=== PATIENT | female | born 1955 | race Caucasian/White ===

== ENCOUNTER 2018-03-20 13:02 | Emergency (ER) | payer OTHER ==
--- NOTE | 2018-03-20 13:23 | ERPHSYRPT ---
- History of Present Illness Time Seen by Provider: 03/20/18 13:18 Historian: patient, family Exam Limitations: no limitations Patient Subjective Stated Complaint: Pt states "My grandson has seizures and he had one in the car and I leaned over the seat in the car to get him and I think I cracked a rib." Triage Nursing Assessment: Pt alert and oriented X 3, skin pwd. PT ambulates with an upright steady gait, able to speak in clear full sentences. Pt has tenderness noted to rib on left lateral and anterior side. Physician History: The patient is a 62-year-old female with family complaining that she hurt her left lateral ribs one week ago when she turned around from her front seat of the car to attend to one of her relatives. The top of the seat pushed on her rib causing it to hurt. She is concerned that it may be broken. It hurts some when she takes a deep breath. She denies shortness of breath. Her past medical history is significant for hypertension and coronary artery disease. Timing/Duration: week(s) (1) Activities at Onset: none Quality: sharpness Location: other (left rib pain) Chest Pain Radiation: no radiation Severity of Pain-Max: moderate Severity of Pain-Current: moderate Modifying Factors: Improves With: movement Associated Symptoms: hurts to breathe Prior Chest Pain/Cardiac Workup: no prior chest pain Nitro Today/Relief: no nitro taken today Aspirin Treatment Today: no aspirin today Allergies/Adverse Reactions: oseltamivir phosphate [From Tamiflu] Adverse Reaction (Verified 08/30/15 11:13) Home Medications: Aspir 81 81 mg PO BID 02/15/12 [History] Lisinopril 5 mg PO DAILY 02/15/12 [History] Nitro-Dur 0.2 mg/Hr 1 patch TOP DAILY 02/15/12 [History] Toprol Xl 50 MG 50 mg PO DAILY 02/15/12 [History] Hx Tetanus, Diphtheria Vaccination/Date Given: Yes Hx Influenza Vaccination/Date Given: No Hx Pneumococcal Vaccination/Date Given: No Immunizations Up to Date: Yes - Review of Systems Constitutional: No Fever, No Chills Eyes: No Symptoms Ears, Nose, & Throat: No Symptoms Respiratory: No Cough, No Dyspnea Cardiac: Chest Pain Abdominal/Gastrointestinal: No Abdominal Pain, No Nausea, No Vomiting, No Diarrhea Genitourinary Symptoms: No Dysuria Musculoskeletal: Injury (rib pain) Skin: No Rash Neurological: No Dizziness, No Focal Weakness, No Sensory Changes Psychological: No Symptoms Endocrine: No Symptoms Hematologic/Lymphatic: No Symptoms Immunological/Allergic: No Symptoms All Other Systems: Reviewed and Negative - Past Medical History Pertinent Past Medical History: Yes Neurological History: No Pertinent History ENT History: No Pertinent History Cardiac History: Coronary Artery Disease, High Cholesterol, Hypertension, Myocardial Infarction ([place]) Respiratory History: No Pertinent History Endocrine Medical History: No Pertinent History Musculoskeletal History: No Pertinent History GI Medical History: No Pertinent History History: Other Psycho-Social History: Anxiety Female Reproductive Disorders: No Pertinent History Other Medical History: kidney stones - Past Surgical History Past Surgical History: Yes Neuro Surgical History: No Pertinent History Cardiac: Cardiac Catheterization, Cardiac Stent Respiratory: No Pertinent History Gastrointestinal: No Pertinent History Genitourinary: No Pertinent History Musculoskeletal: Orthopedic Surgery Female Surgical History: Hysterectomy Other Surgical History: in 2001 and 2004 heart cath x2, heart stents x3. - Social History Smoking Status: Former smoker How long have you smoked: 20 Exposure to second hand smoke: No Drug Use: none Patient Lives Alone: No - Female History Hx Last Menstrual Period: no more Hx Now: No - Nursing Vital Signs Nursing Vital Signs: Initial Vital Signs Temperature 98.8 F 03/20/18 13:07 Pulse Rate 82 03/20/18 13:07 Respiratory Rate 18 03/20/18 13:07 Blood Pressure 130/94 03/20/18 13:07 O2 Sat by Pulse Oximetry 99 03/20/18 13:07 Pain Scale Pain Intensity 4 - Physical Exam General Appearance: no apparent distress, alert Eye Exam: PERRL/EOMI, eyes nml inspection Ears, Nose, Throat Exam: normal ENT inspection, moist mucous membranes Neck Exam: normal inspection, non-tender, supple, full range of motion Respiratory Exam: normal breath sounds, chest tenderness (left lateral rib tenderness), lungs clear, No respiratory distress Cardiovascular Exam: regular rate/rhythm, normal heart sounds Gastrointestinal/Abdomen Exam: soft, No tenderness, No mass Pelvic Exam: not done Rectal Exam: not done Back Exam: normal inspection, No CVA tenderness, No vertebral tenderness Extremity Exam: normal inspection, normal range of motion Neurologic Exam: alert, oriented x 3, cooperative, normal mood/affect, sensation nml, No motor deficits Skin Exam: normal color, warm, dry SpO2 Interpretation: normal SpO2: 99 Oxygen Delivery: Room Air - Radiology Exams Chest X-ray Interpretation: Interpreted by me, Negative, No Fracture, No Pneumothorax Left Ribs X-ray Interpretation: Interpreted by me, Negative, No Fracture, No Pneumothorax Ordered Tests: Active Orders 24 hr Category Date Time Status CHEST 2 VIEWS (PA AND LAT) Stat Exams 03/20/18 13:23 Taken RIBS UNILATERAL Stat Exams 03/20/18 13:23 Taken - Progress Progress: unchanged Air Movement: good Progress Note: 03/20/18 13:20 Pt declines toadol IM. Blood Culture(s) Obtained: No Antibiotics given: No Counseled pt/family regarding: rad results - Departure Time of Disposition: 14:34 Departure Disposition: Home Clinical Impression: Contusion of rib on left side Condition: Stable Critical Care Time: No Referrals: CONCHITA STAFFORD MD [Primary Care Provider] - Additional Instructions: You have a contusion to your left ribs. You declined any pain medicines in the ER. Take Tylenol and ibuprofen as needed. Follow-up with your primary medical doctor as needed.
[2018-03-20 14:05] VITALS: BP 127/95; PULSE 60
[2018-03-20 14:47] VITALS: O2SAT 95
--- NOTE | 2018-03-20 15:53 | XRAY ---
Indication: Left-sided rib pain following injury one week. Comparison: May 01, 2012. PA/lateral chest again hyperinflated with scattered biapical pleural-parenchymal fibrosis/scarring and calcified granulomas. No focal infiltrate, consolidation, or large effusion. Heart is not enlarged. Bony thorax intact again with minimal degenerative changes. Impression: Stable nonacute hyperinflated chest with chronic features.
--- NOTE | 2018-03-20 15:55 | XRAY ---
Indication: Pain following injury one week. Comparison: None 2 views of the left ribs demonstrates minimal double curvature scoliosis, scattered right lung calcified granulomas, and scattered vascular calcifications including coronary arteries. No other bony, articular, or soft tissue abnormalities.
== END 2018-03-20 14:47 | disposition home or self-care (01) ==
LOC: ED 13:02
DX: S20.212A Contusion of left front wall of thorax, initial encounter (principal); X50.0XXA Overexertion from strenuous movement or load, initial encounter; Z79.899 Other long term (current) drug therapy
CPT/HCPCS: 71046; 71100; 99283

== ENCOUNTER 2018-08-25 20:12 | Emergency (ER) | payer MEDICARE, OTHER ==
--- NOTE | 2018-08-25 20:46 | ERPHSYRPT ---
- History of Present Illness Time Seen by Provider: 08/25/18 20:46 Source: patient, family Exam Limitations: no limitations Physician History: 62 y/o white female with h/o bilat ureterolithiasis in past presents with similar left flank pain. came on suddenly and radiates into left groin. no gross hematuria. pt is nauseated but no vomiting. and no abd pain. Timing/Duration: today Activites at Onset: none Quality: pressure, sharpness, stabbing Onset Location: left flank Pain Radiation: groin (left groin) Severity of Pain-Max: moderate Severity of Pain-Current: moderate Sexual intercourse history: non-contributory Modifying Factors: Improves With: nothing Associated Symptoms: denies symptoms Allergies/Adverse Reactions: oseltamivir phosphate [From Tamiflu] Adverse Reaction (Verified 08/30/15 11:13) Home Medications: Aspir 81 81 mg PO BID 02/15/12 [History] Lisinopril 2.5 mg PO DAILY 02/15/12 [History] Nitro-Dur 0.2 mg/Hr 1 patch TOP DAILY 02/15/12 [History] Toprol Xl 50 MG 50 mg PO DAILY 02/15/12 [History] Clonazepam 0.5 mg [Klonopin 0.5 MG] 0.5 mg PO DAILY 08/25/18 [History] raNITIdine HCl [Ranitidine HCl] 150 mg PO BID 08/25/18 [History] Hx Tetanus, Diphtheria Vaccination/Date Given: Yes Hx Influenza Vaccination/Date Given: No Hx Pneumococcal Vaccination/Date Given: No - Review of Systems Constitutional: No Symptoms Eyes: No Symptoms Ears, Nose, & Throat: No Symptoms Respiratory: No Symptoms Cardiac: No Symptoms Abdominal/Gastrointestinal: No Symptoms Genitourinary Symptoms: Flank Pain (left) Musculoskeletal: No Symptoms Skin: No Symptoms Neurological: No Symptoms Psychological: No Symptoms Endocrine: No Symptoms Hematologic/Lymphatic: No Symptoms Immunological/Allergic: No Symptoms All Other Systems: Reviewed and Negative - Past Medical History Pertinent Past Medical History: Yes Neurological History: No Pertinent History ENT History: No Pertinent History Cardiac History: Coronary Artery Disease, High Cholesterol, Hypertension, Myocardial Infarction ([place]) Respiratory History: No Pertinent History Endocrine Medical History: No Pertinent History Musculoskeletal History: No Pertinent History GI Medical History: No Pertinent History History: Other Psycho-Social History: Anxiety Female Reproductive Disorders: No Pertinent History Other Medical History: kidney stones - Past Surgical History Past Surgical History: Yes Neuro Surgical History: No Pertinent History Cardiac: Cardiac Catheterization, Cardiac Stent Respiratory: No Pertinent History Gastrointestinal: No Pertinent History Genitourinary: No Pertinent History Musculoskeletal: Orthopedic Surgery Female Surgical History: Hysterectomy Other Surgical History: in 2001 and 2004 heart cath x2, heart stents x3. - Social History Smoking Status: Former smoker How long have you smoked: 20 Exposure to second hand smoke: No Drug Use: none Patient Lives Alone: No - Nursing Vital Signs Nursing Vital Signs: Initial Vital Signs Temperature 97.2 F 08/25/18 20:13 Pulse Rate 60 08/25/18 20:13 Respiratory Rate 18 08/25/18 20:13 Blood Pressure 175/102 08/25/18 20:13 O2 Sat by Pulse Oximetry 96 08/25/18 20:13 Pain Scale Pain Intensity 8 - Physical Exam General Appearance: mild distress, alert, anxiety Eye Exam: PERRL/EOMI Ears, Nose, Throat Exam: normal ENT inspection Neck Exam: normal inspection, non-tender, supple, full range of motion Respiratory Exam: normal breath sounds, lungs clear, airway intact, No chest tenderness, No respiratory distress Cardiovascular Exam: regular rate/rhythm, normal heart sounds, normal peripheral pulses Gastrointestinal/Abdomen Exam: soft, normal bowel sounds, No tenderness, No guarding, No rebound Pelvic Exam: not done Rectal Exam: not done Back Exam: CVA tenderness (left) Extremity Exam: normal inspection, normal range of motion, pelvis stable Neurologic Exam: alert, oriented x 3, cooperative, 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 tested Skin Exam: normal color, warm, dry Lymphatic Exam: No adenopathy SpO2 Interpretation: normal O2 Delivery: Room Air - Course Nursing assessment & vital signs reviewed: Yes EKG Interpreted by Me: RATE (56), Sinus Rhythm, NORMAL AXIS, NORMAL INTERVALS, NORMAL QRS, NORMAL ST-T, Other (no comparison ekg.) Ordered Tests: Active Orders 24 hr Category Date Time Status IV Insertion STAT Care 08/25/18 20:56 Active ABDOMEN AND PELVIS W/0 CONTRAS [CT] Stat Exams 08/25/18 20:57 Taken AMYLASE Stat Lab 08/25/18 20:56 Completed CBC W DIFF Stat Lab 08/25/18 20:56 Completed CMP Stat Lab 08/25/18 20:56 Completed CULTURE,URINE Stat Lab 08/25/18 21:00 Received LIPASE Stat Lab 08/25/18 20:56 Completed Lactic Acid Stat Lab 08/25/18 21:05 Completed UA W/RFX UR CULTURE Stat Lab 08/25/18 21:00 Completed Medication Summary Discontinued Medications Generic Name Dose Route Start Last Admin Trade Name Freq PRN Reason Stop Dose Admin Hydromorphone HCl 1 mg 08/25/18 20:56 08/25/18 21:10 Hydromorphone 1 Mg/Ml Ampule IV 08/25/18 20:57 1 mg STAT ONE Administration Hydromorphone HCl Confirm 08/25/18 21:06 Hydromorphone 1 Mg/Ml Ampule Administered 08/25/18 21:07 Dose 1 mg .ROUTE .STK-MED ONE Sodium Chloride 1,000 mls @ 999 mls/hr 08/25/18 20:56 08/25/18 21:11 Sodium Chloride 0.9% 1000 Ml IV 08/25/18 21:56 999 mls/hr .Q1H1M STA Administration Sodium Chloride Confirm 08/25/18 21:07 Sodium Chloride 0.9% 1000 Ml Administered 08/25/18 21:08 Dose 1,000 mls @ ud .ROUTE .STK-MED ONE Ondansetron HCl 4 mg 08/25/18 20:56 08/25/18 21:11 Zofran 4 Mg/2 Ml Vial IV 08/25/18 20:57 4 mg STAT ONE Administration Ondansetron HCl Confirm 08/25/18 21:06 Zofran 4 Mg/2 Ml Vial Administered 08/25/18 21:07 Dose 4 mg .ROUTE .STK-MED ONE Lab/Rad Data: Laboratory Result Diagrams 08/25/18 20:56 08/25/18 20:56 Laboratory Results 08/25/18 08/25/18 08/25/18 Range/Units 21:05 21:00 20:56 WBC (4.0-10.5) K/mm3 RBC (4.1-5.4) M/mm3 Hgb (12.0-16.0) gm/dl Hct (35-47) % MCV (78-100) fl MCH (26-32) pg MCHC (32-36) g/dl RDW (11.5-14.0) % Plt Count (150-450) K/mm3 MPV (6-9.5) fl Gran % (36.0-66.0) % Eos # (Auto) (0-0.5) Absolute Lymphs (auto) (1.0-4.6) Absolute Monos (auto) (0.0-1.3) Lymphocytes % (24.0-44.0) % Monocytes % (0.0-12.0) % Eosinophils % (0.00-5.0) % Basophils % (0.0-0.4) % Absolute Granulocytes (1.4-6.9) Basophils # (0-0.4) Sodium 142 (137-145) mmol/L Potassium 4.7 (3.5-5.1) mmol/L Chloride 106 (98-107) mmol/L Carbon Dioxide 25 (22-30) mmol/L Anion Gap 15.2 H (5-15) MEQ/L BUN 17 (7-17) mg/dL Creatinine 1.71 H (0.52-1.04) mg/dL Estimated GFR 32.3 ML/MIN Glucose 145 H (74-106) mg/dL Lactic Acid 1.5 (0.4-2.0) Calcium 10.1 (8.4-10.2) mg/dL Total Bilirubin 0.30 (0.2-1.3) mg/dL AST 24 (14-36) U/L ALT 17 (0-35) U/L Alkaline Phosphatase 81 (38-126) U/L Serum Total Protein 7.0 (6.3-8.2) g/dL Albumin 4.2 (3.5-5.0) g/dL Amylase 102 (30-110) U/L Lipase 92 (23-300) U/L Urine Color YELLOW (YELLOW) Urine Appearance CLEAR (CLEAR) Urine pH 5.0 (5-6) Ur Specific [place] 1.017 (1.005-1.025) Urine Protein NEGATIVE (Negative) Urine Ketones NEGATIVE (NEGATIVE) Urine Blood LARGE (0-5) Bala/ul Urine Nitrite NEGATIVE (NEGATIVE) Urine Bilirubin NEGATIVE (NEGATIVE) Urine Urobilinogen NEGATIVE (0-1) mg/dL Ur Leukocyte Esterase NEGATIVE (NEGATIVE) Urine WBC (Auto) 6-10 (0-5) /HPF Urine RBC (Auto) >101 (0-2) /HPF U Epithel Cells (Auto) NONE (FEW) /HPF Urine Bacteria (Auto) NONE (NEGATIVE) /HPF Urine Mucus (Auto) SLIGHT (NEGATIVE) /HPF Urine Culture Reflexed YES (NO) Urine Glucose 50 (NEGATIVE) mg/dL 08/25/18 Range/Units 20:56 WBC 7.1 (4.0-10.5) K/mm3 RBC 4.60 (4.1-5.4) M/mm3 Hgb 13.5 (12.0-16.0) gm/dl Hct 41.3 (35-47) % MCV 89.8 (78-100) fl MCH 29.3 (26-32) pg MCHC 32.7 (32-36) g/dl RDW 13.8 (11.5-14.0) % Plt Count 191 (150-450) K/mm3 MPV 10.2 H (6-9.5) fl Gran % 60.1 (36.0-66.0) % Eos # (Auto) 0.28 (0-0.5) Absolute Lymphs (auto) 1.95 (1.0-4.6) Absolute Monos (auto) 0.57 (0.0-1.3) Lymphocytes % 27.5 (24.0-44.0) % Monocytes % 8.1 (0.0-12.0) % Eosinophils % 4.0 (0.00-5.0) % Basophils % 0.3 (0.0-0.4) % Absolute Granulocytes 4.26 (1.4-6.9) Basophils # 0.02 (0-0.4) Sodium (137-145) mmol/L Potassium (3.5-5.1) mmol/L Chloride (98-107) mmol/L Carbon Dioxide (22-30) mmol/L Anion Gap (5-15) MEQ/L BUN (7-17) mg/dL Creatinine (0.52-1.04) mg/dL Estimated GFR ML/MIN Glucose (74-106) mg/dL Lactic Acid (0.4-2.0) Calcium (8.4-10.2) mg/dL Total Bilirubin (0.2-1.3) mg/dL AST (14-36) U/L ALT (0-35) U/L Alkaline Phosphatase (38-126) U/L Serum Total Protein (6.3-8.2) g/dL Albumin (3.5-5.0) g/dL Amylase (30-110) U/L Lipase (23-300) U/L Urine Color (YELLOW) Urine Appearance (CLEAR) Urine pH (5-6) Ur Specific [place] (1.005-1.025) Urine Protein (Negative) Urine Ketones (NEGATIVE) Urine Blood (0-5) Bala/ul Urine Nitrite (NEGATIVE) Urine Bilirubin (NEGATIVE) Urine Urobilinogen (0-1) mg/dL Ur Leukocyte Esterase (NEGATIVE) Urine WBC (Auto) (0-5) /HPF Urine RBC (Auto) (0-2) /HPF U Epithel Cells (Auto) (FEW) /HPF Urine Bacteria (Auto) (NEGATIVE) /HPF Urine Mucus (Auto) (NEGATIVE) /HPF Urine Culture Reflexed (NO) Urine Glucose (NEGATIVE) mg/dL - Progress Progress: improved, re-examined Air Movement: good Progress Note: 08/25/18 23:23 ct abd/pelvis-3mm distal left ureterolithiasis with mild hydroureteronephrosis Blood Culture(s) Obtained: No Antibiotics given: No Counseled pt/family regarding: lab results, diagnosis, need for follow-up, rad results - Departure Departure Disposition: Home Clinical Impression: Ureterolithiasis Condition: Stable Critical Care Time: No Referrals: CONCHITA STAFFORD MD [Primary Care Provider] - Additional Instructions: drink plenty of fluids. follow up with urologist/primary doctor for further management. add ibuprofen for pain. Prescriptions: Hydrocodone/APAP 5/325 [[place] 5/325 mg] 1 each PO Q8H PRN PRN #10 tablet MDD 3 PRN Reason: Pain
[2018-08-25] MEDS ORDERED: Hydromorphone 1 mg/ml Ampule IV ONE ×2 (20:56→23:28)
[2018-08-25] MEDS ORDERED: Sodium Chloride 0.9% 1000 ML 1,000 ML IV STA (20:56)
[2018-08-25] MEDS ORDERED: Zofran 4 MG/2 ML VIAL IV ONE ×2 (20:56→23:32)
[2018-08-25] MEDS ORDERED: Zofran 4 MG/2 ML VIAL ONE ×2 (21:06→23:35)
[2018-08-25] MEDS ORDERED: Hydromorphone 1 mg/ml Ampule ONE (21:06)
[2018-08-25] MEDS ORDERED: Sodium Chloride 0.9% 1000 ML 1,000 ML ONE (21:07)
[2018-08-25 21:14] LABS: BASOPHIL % 0.3 % (0.0-0.4); Basophil (Absolute #) 0.02 (0-0.4); Eosinophil (Absolute #) 0.28 (0-0.5); Granulocyte Absolute (ANC) 4.26 (1.4-6.9); Granulocytes % 60.1 % (36.0-66.0); Hematocrit 41.3 % (35-47); Hemoglobin 13.5 gm/dl (12.0-16.0); Lymphocyte (Absolute #) 1.95 (1.0-4.6); Lymphocytes % 27.5 % (24.0-44.0); Mean Cell Volume 89.8 fl (78-100); Mean Corpuscular Hemoglobin 29.3 pg (26-32); Mean Corpuscular Hgb Concent. 32.7 g/dl (32-36); Mean Platelet Volume 10.2 fl (6-9.5); Monocyte (Absolute #) 0.57 (0.0-1.3); Monocytes % 8.1 % (0.0-12.0); Platelet Count 191 K/mm3 (150-450); Red Cell Distribution Width 13.8 % (11.5-14.0); White Blood Count 7.1 K/mm3 (4.0-10.5)
[2018-08-25 21:23] LABS: Appearance CLEAR (CLEAR); Bilirubin NEGATIVE (NEGATIVE); Blood LARGE Ery/ul (0-5); Glucose 50 mg/dL (NEGATIVE); Ketones NEGATIVE (NEGATIVE); Leukocyte Esterase NEGATIVE (NEGATIVE); Mucus SLIGHT /HPF (NEGATIVE); Nitrite NEGATIVE (NEGATIVE); Protein,Urine Dip NEGATIVE (Negative); Specific Gravity 1.017 (1.005-1.025); Urobilinogen NEGATIVE mg/dL (0-1)
[2018-08-25 21:24] LABS: RBC >101 /HPF (0-2)
[2018-08-25 21:26] LABS: ALBUMIN 4.2 g/dL (3.5-5.0); ANION GAP 15.2 MEQ/L (5-15); BILIRUBIN,TOTAL 0.3 mg/dL (0.2-1.3); Calcium 10.1 mg/dL (8.4-10.2); Creatinine 1 1.71 mg/dL (0.52-1.04); Potassium 4.7 mmol/L (3.5-5.1)
[2018-08-25] MEDS ORDERED: TORAdol 30 mg Injection IV ONE (23:28)
[2018-08-25] MEDS ORDERED: TORAdol 30 mg Injection ONE (23:35)
[2018-08-26 00:01] VITALS: BP 125/61; PULSE 60; O2SAT 96
--- NOTE | 2018-08-26 09:04 | XRAY ---
Indication: Left flank pain. Renal failure. Multiple contiguous axial images obtained through the abdomen and pelvis without contrast as ordered. Comparison: August 30, 2015. Lung bases now demonstrates mild dependent atelectasis. Stable pulmonary emphysema, scattered fibrosis/scarring, and right base calcified granuloma. No infiltrate or effusion. Heart is not enlarged. New small hiatal hernia. Stomach is distended with food/fluid. Noncontrasted stomach and bowel loops appears nonobstructed. Previous reported appendectomy and hysterectom. No free fluid/air. New 2-3 mm distal left ureter calculus approximately 3-4 cm proximal to the UVJ. Left ureter is slightly prominent and there is mild hydronephrosis consistent with partial obstructive uropathy. Remaining kidneys demonstrate stable bilateral cysts, bilateral punctate calcifications, and right renal scarring. Remaining liver, gallbladder, pancreas, spleen, adrenal glands, kidneys, ureters, and bladder appear unremarkable for noncontrast exam. Again heavy scattered vascular calcifications. No AAA. Osseous structures intact with minimal degenerative changes throughout the spine. Stable small fatty umbilical hernia. Impression: 1. New 2-3 mm distal left ureteral calculus producing partial obstruction. 2. Stable bilateral renal cysts with punctate calcifications and right renal scarring. 3. Stable fatty umbilical hernia, pulmonary emphysema, and evidence for old granulomatous disease. New small hiatal hernia. 4. Remaining CT abdomen/pelvis without contrast exam is negative Comment: Preliminary interpretation was made by [facility]. No critical discrepancy. CT DI 16.29
== END 2018-08-26 00:02 | disposition home or self-care (01) ==
LOC: ED 20:12
DX: N20.1 Calculus of ureter (principal); R10.30 Lower abdominal pain, unspecified; Z79.899 Other long term (current) drug therapy
CPT/HCPCS: 36000; 36415; 74176; 80053; 81001; 82150; 83605; 83690; 85025; 87086; 96360; 96374; 96375; 96376; 99284; J1170; J1885; J2405

== ENCOUNTER 2018-10-24 21:19 | Emergency (ER) | payer MEDICARE ==
--- NOTE | 2018-10-24 21:40 | ERPHSYRPT ---
- History of Present Illness Time Seen by Provider: 10/24/18 21:35 Source: patient Exam Limitations: clinical condition Physician History: PATIENT FELL AND SUSTAINED INJURY TO HER LEFT FOOT AND ANKLE 1 WEEK AGO. HAS PERSISTENT PAIN WITH SWELLING. Method of Injury: direct blow, fell Occurred: last week Severity of Pain-Max: moderate Severity of Pain-Current: moderate Lower Extremities Pain: foot: left, ankle: left Modifying Factors: Improves With: movement Associated Symptoms: other (SEVERE PAIN UPON WEIGHT BEARING) Allergies/Adverse Reactions: oseltamivir phosphate [From Tamiflu] Adverse Reaction (Verified 10/24/18 21:36) Home Medications: Aspir 81 81 mg PO BID 02/15/12 [History] Lisinopril 2.5 mg PO DAILY 02/15/12 [History] Nitro-Dur 0.2 mg/Hr 1 patch TOP DAILY 02/15/12 [History] Toprol Xl 50 MG 50 mg PO DAILY 02/15/12 [History] Clonazepam 0.5 mg [Klonopin 0.5 MG] 0.5 mg PO DAILY 08/25/18 [History] raNITIdine HCl [Ranitidine HCl] 150 mg PO BID 08/25/18 [History] Hx Tetanus, Diphtheria Vaccination/Date Given: Yes Hx Influenza Vaccination/Date Given: No Hx Pneumococcal Vaccination/Date Given: No - Review of Systems Constitutional: No Symptoms Musculoskeletal: Injury, Joint Pain, Joint Swelling Neurological: No Symptoms, Dizziness, Focal Weakness - Past Medical History Pertinent Past Medical History: Yes Neurological History: No Pertinent History ENT History: No Pertinent History Cardiac History: Coronary Artery Disease, High Cholesterol, Hypertension, Myocardial Infarction ([place]) Respiratory History: No Pertinent History Endocrine Medical History: No Pertinent History Musculoskeletal History: No Pertinent History GI Medical History: No Pertinent History History: Other Psycho-Social History: Anxiety Female Reproductive Disorders: No Pertinent History Other Medical History: kidney stones - Past Surgical History Past Surgical History: Yes Neuro Surgical History: No Pertinent History Cardiac: Cardiac Catheterization, Cardiac Stent Respiratory: No Pertinent History Gastrointestinal: No Pertinent History Genitourinary: No Pertinent History Musculoskeletal: Orthopedic Surgery Female Surgical History: Hysterectomy Other Surgical History: in 2001 and 2004 heart cath x2, heart stents x3. - Social History Smoking Status: Former smoker How long have you smoked: 20 Exposure to second hand smoke: No Drug Use: none Patient Lives Alone: No - Nursing Vital Signs Nursing Vital Signs: Initial Vital Signs Temperature 98.1 F 10/24/18 21:38 Pulse Rate 62 10/24/18 21:38 Respiratory Rate 18 10/24/18 21:38 Blood Pressure 174/98 10/24/18 21:38 O2 Sat by Pulse Oximetry 97 10/24/18 21:38 Pain Scale Pain Intensity 8 - Physical Exam General Appearance: mild distress Ankle Exam: left ankle: limited range of motion, pain, soft tissue tenderness, swelling (LATERAL MALLEOLUS, NO JOINT LAXITY UPON VARUS/VALGUS STRESS, NEGATIVE ANTERIOR DRAW SIGN) Foot Exam: left foot: pain (RESOLVING ECCHYMOSIS PROXIMAL TO MID 4TH TO 5TH METATARSAL ON LEFT, MARKED TENDERNESS PROXIMAL TO MID LEFT 4TH 5TH METATARSAL, LEFT PEDIS PULSE 2 +), soft tissue tenderness DTR - Lower Extremities Exam: knee (R): 2+, knee (L): 2+, ankle (R): 2+, ankle ( L): 2+ Neuro/Tendon Exam: normal sensation Mental Status Exam: alert, oriented x 3 SpO2 Interpretation: normal SpO2: 98 Procedures - Splinting Location of Splint: Left, Lower Leg Type of Splint: Orthoglass Short Leg Splint Splint Applied By: ED Physician Pre-Proc Neuro Vasc Exam: normal Post-Proc Neuro Vasc Exam: neurovascular intact, unchanged from pre-exam Ordered Tests: Active Orders 24 hr Category Date Time Status Splint STAT Care 10/24/18 22:31 Ordered ANKLE (3 VIEWS) Stat Exams 10/24/18 21:37 Ordered FOOT (MINIMUM 3 VIEWS) Stat Exams 10/24/18 21:39 Ordered Medication Summary Discontinued Medications Generic Name Dose Route Start Last Admin Trade Name Marcella PRN Reason Stop Dose Admin Hydrocodone Bitart/Acetaminophen 1 tab 10/24/18 22:31 10/24/18 22:39 [place] 10/325 Mg Tablet PO 10/24/18 22:32 1 tab STAT ONE Administration Hydrocodone Bitart/Acetaminophen 2 tab 10/24/18 22:31 10/24/18 22:40 [place] 10/325 Mg Tablet PO 10/24/18 22:32 2 tab SENT HOME W/ PATIENT ONE Administration Hydrocodone Bitart/Acetaminophen Confirm 10/24/18 22:37 [place] 10/325 Mg Tablet Administered 10/24/18 22:38 Dose 3 tab .ROUTE .STK-MED ONE - Progress Progress: pain not gone completely Progress Note: 10/24/18 22:50 ADMINISTERED NORCO 10/325 ORALLY, NORCO 10/325 2 TAB TAKE HOME 10/24/18 22:51, FITTED FOR CRUTCHES Counseled pt/family regarding: diagnosis, need for follow-up, rad results - Departure Departure Disposition: Home Clinical Impression: DISPLACED LEFT 5TH METATARSAL FRACTURE Condition: Stable Critical Care Time: No Referrals: CONCHITA STAFFORD MD [Primary Care Provider] - Additional Instructions: AMBULATE USING CRUTCHES NONWEIGHT BEARING CRUTCHES. FOLLOWUP WITH [facility] TOMORROW AT 10AM WITH COPY OF XRAY DISC, [address], [phone] FOR EVALUATION. ELEVATE FOOT ABOVE WAIST WHILE SITTING OR SUPINE POSITION. NORCO 5/325 EVERY 6 HOURS FOR PAIN NEEDED. Prescriptions: Hydrocodone/APAP 5-325 Tab^^^ [[place] 5-325 Tablet^^^] 1 tab PO Q6HPRN PRN #15 tablet MDD 6 PRN Reason: Pain
[2018-10-24] MEDS ORDERED: Norco 10/325 MG Tablet PO ONE ×2 (22:31)
[2018-10-24] MEDS ORDERED: Norco 10/325 MG Tablet ONE (22:37)
[2018-10-24 22:47] VITALS: BP 158/98; PULSE 66
[2018-10-24 22:56] VITALS: O2SAT 98
--- NOTE | 2018-10-25 08:58 | XRAY ---
Indication: Pain and swelling following fall. Comparison: None 3 views of the left ankle demonstrates small plantar heel spur and a 5th metatarsal fracture reported separately. No other bony, articular, or soft tissue abnormalities.
--- NOTE | 2018-10-25 09:00 | XRAY ---
Indication: Pain and swelling following fall. Comparison: None 3 nonweightbearing views of the left foot demonstrates minimally displaced 5th metatarsal shaft oblique fracture with soft tissue swelling. Small plantar heel spur and navicular accessory ossicle. No other bony, articular, or soft tissue abnormalities.
== END 2018-10-24 23:48 | disposition home or self-care (01) ==
LOC: ED 21:19
DX: S92.352A Displaced fracture of fifth metatarsal bone, left foot, initial encounter for closed fracture (principal); Z79.899 Other long term (current) drug therapy; M25.572 Pain in left ankle and joints of left foot; M79.672 Pain in left foot; W19.XXXA Unspecified fall, initial encounter
CPT/HCPCS: 73610; 73630; 99284; A9270-GY

== ENCOUNTER 2019-04-06 00:49 | Observation (INO) | payer MEDICARE ==
[2019-04-06] MEDS ORDERED: SUBLIMAZE 100 MCG/2 ML IV ONE (00:59)
[2019-04-06] MEDS ORDERED: Zofran 4 MG/2 ML VIAL IV ONE (00:59)
[2019-04-06] MEDS ORDERED: PROTONIX 40 MG IV IV ONE ×2 (00:59→01:17)
[2019-04-06 01:15] LABS: Absolute Neutrophil Ct (ANC) 4.25 (1.4-6.9); BASOPHIL % 0.5 % (0.0-0.4); Basophil (Absolute #) 0.05 (0-0.4); Eosinophil % 6.1 % (0.00-5.0); Eosinophil (Absolute #) 0.56 (0-0.5); Hematocrit 42.3 % (35-47); Hemoglobin 13.7 gm/dl (12.0-16.0); Lymphocyte (Absolute #) 3.51 (1.0-4.6); Lymphocytes % 38.2 % (24.0-44.0); Mean Cell Volume 88.9 fl (78-100); Mean Corpuscular Hemoglobin 28.8 pg (26-32); Mean Corpuscular Hgb Concent. 32.4 g/dl (32-36); Mean Platelet Volume 9.8 fl (6-9.5); Monocyte (Absolute #) 0.83 (0.0-1.3); Neutrophil % 46.2 % (36.0-66.0); Platelet Count 224 K/mm3 (150-450); Red Blood Count 4.76 M/mm3 (4.1-5.4); Red Cell Distribution Width 14.2 % (11.5-14.0); White Blood Count 9.2 K/mm3 (4.0-10.5)
[2019-04-06] MEDS ORDERED: Zofran 4 MG/2 ML VIAL ONE ×2 (01:17→16:21)
[2019-04-06] MEDS ORDERED: SUBLIMAZE 100 MCG/2 ML ONE ×2 (01:18→14:05)
[2019-04-06 01:23] LABS: INR 0.9 (0.8-3.0); PROTIME 10.2 SECONDS (9.95-12.35)
[2019-04-06 01:26] LABS: PTT 29.2 SECONDS (25.3-37.0)
[2019-04-06] MEDS: Sodium Chloride 0.9% 1000 ML 1,000 ML IV SCH ×3 (01:26→22:12)
[2019-04-06 01:27] LABS: AMYLASE 102 U/L (30-110); LIPASE 272 U/L (23-300)
[2019-04-06 01:38] LABS: ALBUMIN 4.3 g/dL (3.5-5.0); ANION GAP 12.9 MEQ/L (5-15); BILIRUBIN,TOTAL 0.3 mg/dL (0.2-1.3); Calcium 9.6 mg/dL (8.4-10.2); Creatinine 1 1.51 mg/dL (0.52-1.04); Potassium 3.7 mmol/L (3.5-5.1); Total Protein 7.7 g/dL (6.3-8.2)
--- NOTE | 2019-04-06 02:13 | ERPHSYRPT ---
- History of Present Illness Time Seen by Provider: 04/06/19 00:55 Historian: patient Exam Limitations: no limitations Patient Subjective Stated Complaint: pt arrived stating that she is having chest pain and abdominal pain that wokeher up while asleep this morning. pt rates pain as 10/10 at this time Triage Nursing Assessment: pt states pain in abdomen and chest 10/10. states she has had several heart attacks in passed. Physician History: patient is a 63-year-old white female with a history of previous AK who was awaken from sleep with pain which started in the upper abdomen radiating to the chest and made it patient short of breath. She denies any nausea vomiting or diaphoresis she states definitively that the chest pain is not like any previous AK. She also is being treated for GERD with ranitidine substitute. She has a history of AK she has a positive family history her cholesterol has been elevated she was recently started on a medication for that hypertension stated diabetes negative she is a former smoker. Timing/Duration: sudden, other (onset just prior to arrival) Activities at Onset: sleep Quality: fullness, tightness Abdominal Pain Onset Location: RUQ, epigastric Pain Radiation: chest Severity of Pain-Max: moderate Severity of Pain-Current: moderate Modifying Factors: Improves With: nothing Associated Symptoms: chest pain, shortness of breath Previous symptoms: different symptoms (aand) Allergies/Adverse Reactions: oseltamivir phosphate [From Tamiflu] Adverse Reaction (Verified 04/06/19 01:07) Home Medications: Aspir 81 81 mg PO BID 02/15/12 [History] Lisinopril 2.5 mg PO DAILY 02/15/12 [History] Nitro-Dur 0.2 mg/Hr 1 patch TOP DAILY 02/15/12 [History] Toprol Xl 50 MG 50 mg PO DAILY 02/15/12 [History] Clonazepam 0.5 mg [Klonopin 0.5 MG] 0.5 mg PO DAILY 08/25/18 [History] Atorvastatin Calcium 10 mg PO DAILY 04/06/19 [History] Famotidine 20 mg PO DAILY 04/06/19 [History] Famotidine 20 mg PO DAILY 04/06/19 [History] Hx Tetanus, Diphtheria Vaccination/Date Given: Yes Hx Influenza Vaccination/Date Given: No Hx Pneumococcal Vaccination/Date Given: No - Review of Systems Constitutional: No Symptoms (n), No Fever, No Chills Eyes: No Symptoms Ears, Nose, & Throat: No Symptoms Respiratory: Dyspnea, No Cough Cardiac: Chest Pain, No Edema, No Syncope Abdominal/Gastrointestinal: Abdominal Pain, No Nausea, No Vomiting, No Diarrhea Genitourinary Symptoms: No Dysuria Musculoskeletal: No Back Pain, No Neck Pain Skin: No Rash Neurological: No Dizziness, No Focal Weakness, No Sensory Changes Psychological: No Symptoms Endocrine: No Symptoms All Other Systems: Reviewed and Negative - Past Medical History Pertinent Past Medical History: Yes Neurological History: No Pertinent History ENT History: No Pertinent History Cardiac History: Coronary Artery Disease, High Cholesterol, Hypertension, Myocardial Infarction (AK) Respiratory History: No Pertinent History Endocrine Medical History: No Pertinent History Musculoskeletal History: No Pertinent History GI Medical History: No Pertinent History History: Other Psycho-Social History: Anxiety Female Reproductive Disorders: No Pertinent History Other Medical History: kidney stones - Past Surgical History Past Surgical History: Yes Neuro Surgical History: No Pertinent History Cardiac: Cardiac Catheterization, Cardiac Stent Respiratory: No Pertinent History Gastrointestinal: No Pertinent History Genitourinary: No Pertinent History Musculoskeletal: Orthopedic Surgery Female Surgical History: Hysterectomy Other Surgical History: in 2001 and 2004 heart cath x2, heart stents x3. - Social History Smoking Status: Former smoker How long have you smoked: 20 Exposure to second hand smoke: No Drug Use: none Patient Lives Alone: No - Nursing Vital Signs Nursing Vital Signs: Initial Vital Signs Temperature 97.6 F 04/06/19 00:50 Pulse Rate 73 04/06/19 00:50 Respiratory Rate 20 04/06/19 00:50 Blood Pressure 163/93 04/06/19 00:50 O2 Sat by Pulse Oximetry 100 04/06/19 00:50 Pain Scale Pain Intensity 8 - Physical Exam General Appearance: mild distress, alert Eye Exam: PERRL/EOMI, eyes nml inspection Ears, Nose, Throat Exam: normal ENT inspection, pharynx normal, moist mucous membranes Neck Exam: normal inspection, non-tender, supple, full range of motion Respiratory Exam: normal breath sounds, lungs clear, No respiratory distress Cardiovascular Exam: regular rate/rhythm, normal heart sounds Gastrointestinal/Abdomen Exam: tenderness (tenderness in the right upper quadrant and epigastrium), No mass Pelvic Exam: not done Rectal Exam: not done Back Exam: normal inspection, normal range of motion, No CVA tenderness, No vertebral tenderness Extremity Exam: normal inspection, normal range of motion, pelvis stable Neurologic Exam: alert, oriented x 3, cooperative, normal mood/affect, nml cerebellar function, sensation nml, No motor deficits Skin Exam: normal color, warm, dry Lymphatic Exam: adenopathy SpO2 Interpretation: normal SpO2: 96 O2 Delivery: Room Air - Course Nursing assessment & vital signs reviewed: Yes EKG Interpreted by Me: RATE ([id number]), Sinus Rhythm, NORMAL AXIS, NORMAL INTERVALS, NORMAL QRS, Non-specific ST Changes Ordered Tests: Active Orders 24 hr Category Date Time Status Alteration Worker STAT Care 04/06/19 00:58 Active EKG-ER Only STAT Care 04/06/19 00:57 Active IV Insertion STAT Care 04/06/19 00:57 Active Pulse Oximetry (ED) STAT Care 04/06/19 00:57 Active CHEST 1 VIEW (PORTABLE) Stat Exams 04/06/19 00:57 Taken AMYLASE Stat Lab 04/06/19 01:16 Completed CBC W DIFF Stat Lab 04/06/19 01:16 Completed CK-Creatinine Phosphokinase Stat Lab 04/06/19 01:16 Completed CMP Stat Lab 04/06/19 01:16 Completed D-DIMER QUANTITATION Stat Lab 04/06/19 01:16 Completed LIPASE Stat Lab 04/06/19 01:16 Completed Lactic Acid Stat Lab 04/06/19 00:55 Completed NT PRO BNP Stat Lab 04/06/19 01:16 Completed PROTIME WITH INR Stat Lab 04/06/19 01:16 Completed PTT Stat Lab 04/06/19 01:16 Completed TROPONIN Q3H Lab 04/06/19 01:16 Completed TROPONIN Q3H Lab 04/06/19 04:00 Ordered TROPONIN Q3H Lab 04/06/19 07:00 Ordered TROPONIN Q3H Lab 04/06/19 10:00 Ordered TROPONIN Q3H Lab 04/06/19 13:00 Ordered Medication Summary Generic Name Dose Route Start Last Admin Trade Name Freq PRN Reason Stop Dose Admin Sodium Chloride 1,000 mls @ 100 mls/hr 04/06/19 01:00 04/06/19 01:26 Sodium Chloride 0.9% 1000 Ml IV 05/06/19 00:59 100 mls/hr .Q10H HUMZA Administration Discontinued Medications Generic Name Dose Route Start Last Admin Trade Name Freq PRN Reason Stop Dose Admin Fentanyl Citrate 50 mcg 04/06/19 00:59 04/06/19 01:25 Sublimaze 100 Mcg/2 Ml IV 04/06/19 01:00 50 mcg STAT ONE Administration Fentanyl Citrate Confirm 04/06/19 01:18 Sublimaze 100 Mcg/2 Ml Administered 04/06/19 01:19 Dose 100 mcg .ROUTE .STK-MED ONE Ondansetron HCl 4 mg 04/06/19 00:59 04/06/19 01:26 Zofran 4 Mg/2 Ml Vial IV 04/06/19 01:00 4 mg STAT ONE Administration Ondansetron HCl Confirm 04/06/19 01:17 Zofran 4 Mg/2 Ml Vial Administered 04/06/19 01:18 Dose 4 mg .ROUTE .STK-MED ONE Pantoprazole Sodium 40 mg 04/06/19 00:59 04/06/19 01:25 Protonix 40 Mg Iv IV 04/06/19 01:00 40 mg STAT ONE Administration Pantoprazole Sodium Confirm 04/06/19 01:17 Protonix 40 Mg Iv Administered 04/06/19 01:18 Dose 40 mg IV .STK-MED ONE Lab/Rad Data: Laboratory Result Diagrams 04/06/19 01:16 04/06/19 01:16 Laboratory Results 04/06/19 04/06/19 04/06/19 Range/Units 01:16 01:16 01:16 WBC (4.0-10.5) K/mm3 RBC (4.1-5.4) M/mm3 Hgb (12.0-16.0) gm/dl Hct (35-47) % MCV (78-100) fl MCH (26-32) pg MCHC (32-36) g/dl RDW (11.5-14.0) % Plt Count (150-450) K/mm3 MPV (6-9.5) fl Gran % (36.0-66.0) % Eos # (Auto) (0-0.5) Absolute Lymphs (auto) (1.0-4.6) Absolute Monos (auto) (0.0-1.3) Lymphocytes % (24.0-44.0) % Monocytes % (0.0-12.0) % Eosinophils % (0.00-5.0) % Basophils % (0.0-0.4) % Absolute Granulocytes (1.4-6.9) Basophils # (0-0.4) PT 10.2 (9.95-12.35) SECONDS INR 0.90 (0.8-3.0) APTT 29.2 (25.3-37.0) SECONDS D-Dimer 664 H* (215-500) ng/mL Sodium (137-145) mmol/L Potassium (3.5-5.1) mmol/L Chloride (98-107) mmol/L Carbon Dioxide (22-30) mmol/L Anion Gap (5-15) MEQ/L BUN (7-17) mg/dL Creatinine (0.52-1.04) mg/dL Estimated GFR ML/MIN Glucose (74-106) mg/dL Lactic Acid (0.4-2.0) Calcium (8.4-10.2) mg/dL Total Bilirubin (0.2-1.3) mg/dL AST (14-36) U/L ALT (0-35) U/L Alkaline Phosphatase (38-126) U/L Creatine Kinase (30-135) U/L Troponin I < 0.012 (0.000-0.034) ng/mL NT-Pro-B Natriuret Pep (0-900) pg/mL Serum Total Protein (6.3-8.2) g/dL Albumin (3.5-5.0) g/dL Amylase 102 (30-110) U/L Lipase 272 (23-300) U/L 04/06/19 04/06/19 04/06/19 Range/Units 01:16 01:16 00:55 WBC 9.2 (4.0-10.5) K/mm3 RBC 4.76 (4.1-5.4) M/mm3 Hgb 13.7 (12.0-16.0) gm/dl Hct 42.3 (35-47) % MCV 88.9 (78-100) fl MCH 28.8 (26-32) pg MCHC 32.4 (32-36) g/dl RDW 14.2 H (11.5-14.0) % Plt Count 224 (150-450) K/mm3 MPV 9.8 H (6-9.5) fl Gran % 46.2 (36.0-66.0) % Eos # (Auto) 0.56 H (0-0.5) Absolute Lymphs (auto) 3.51 (1.0-4.6) Absolute Monos (auto) 0.83 (0.0-1.3) Lymphocytes % 38.2 (24.0-44.0) % Monocytes % 9.0 (0.0-12.0) % Eosinophils % 6.1 H (0.00-5.0) % Basophils % 0.5 (0.0-0.4) % Absolute Granulocytes 4.25 (1.4-6.9) Basophils # 0.05 (0-0.4) PT (9.95-12.35) SECONDS INR (0.8-3.0) APTT (25.3-37.0) SECONDS D-Dimer (215-500) ng/mL Sodium 141 (137-145) mmol/L Potassium 3.7 (3.5-5.1) mmol/L Chloride 107 (98-107) mmol/L Carbon Dioxide 25 (22-30) mmol/L Anion Gap 12.9 (5-15) MEQ/L BUN 19 H (7-17) mg/dL Creatinine 1.51 H (0.52-1.04) mg/dL Estimated GFR 37.1 ML/MIN Glucose 119 H (74-106) mg/dL Lactic Acid 1.4 (0.4-2.0) Calcium 9.6 (8.4-10.2) mg/dL Total Bilirubin 0.30 (0.2-1.3) mg/dL AST 22 (14-36) U/L ALT 13 (0-35) U/L Alkaline Phosphatase 128 H (38-126) U/L Creatine Kinase 65 (30-135) U/L Troponin I (0.000-0.034) ng/mL NT-Pro-B Natriuret Pep 262 (0-900) pg/mL Serum Total Protein 7.7 (6.3-8.2) g/dL Albumin 4.3 (3.5-5.0) g/dL Amylase (30-110) U/L Lipase (23-300) U/L - Progress Progress: improved Discussed with : Shy Will see patient in: hospital (observation) - Departure Departure Disposition: Observation Clinical Impression: Chest pain Condition: Stable Critical Care Time: No Referrals: DOCTOR,NO FAMILY [Primary Care Provider] - Instructions: Chest Pain (DC)
[2019-04-06] MEDS ORDERED: MAALOX ES 30 ML UNIT DOSE PO PRN (02:15)
[2019-04-06] MEDS ORDERED: Zofran 4 MG/2 ML VIAL IV PRN ×2 (02:15→18:05)
[2019-04-06] MEDS ORDERED: MILK OF MAGNESIA 30 ML PO PRN (02:15)
[2019-04-06] MEDS ORDERED: TYLENOL 325 MG PO PRN (02:15)
[2019-04-06] MEDS ORDERED: Senokot-S Tablet PO PRN (02:15)
[2019-04-06] MEDS ORDERED: ENOXAPARIN SODIUM SQ SCH ×2 (02:15→18:00)
[2019-04-06 05:13] LABS: Risk Ratio 3.2
--- NOTE | 2019-04-06 09:02 | XRAY ---
Indication: Chest pain. Comparison: March 20, 2018. Portable chest again demonstrates scattered fibrosis/scarring without focal infiltrate, consolidation, or large effusion. Heart is not enlarged. Bony thorax intact again with minimal degenerative changes and levoscoliosis. Impression: Nonacute chest with chronic features.
[2019-04-06] MEDS: Toprol-Xl 25MG Tablets PO SCH (09:32)
[2019-04-06] MEDS: Zestril 5 MG PO SCH (09:32)
[2019-04-06] MEDS: NITRO-DUR 0.2 MG/HR TD SCH (09:34)
[2019-04-06] MEDS ORDERED: ECOTRIN 81 MG PO SCH (10:00)
[2019-04-06] MEDS ORDERED: Klonopin 0.5 MG PO SCH (10:00)
[2019-04-06] MEDS ORDERED: Pepcid 20 MG VIAL IV SCH (10:00)
--- NOTE | 2019-04-06 11:25 | XRAY ---
Indication: Right upper quadrant pain. Two-dimensional gallbladder sonogram performed. Comparison: December 29, 2013. Gallbladder normally distended with new 1.5 cm gallstone. No gallbladder wall thickening or pericholecystic fluid. Common bile duct measures 5.6 mm. Remaining visualized portions of the liver and pancreas sonographically unremarkable. No ascites. Right kidney is smaller measuring 9.5 x 3.8 x 4.1 cm again with renal cysts, largest 2.2 cm unchanged. No solid renal mass or hydronephrosis. Impression: 1. New cholelithiasis without cholecystitis or biliary distention. 2. Again incidental right renal cysts.
--- NOTE | 2019-04-06 13:18 | PCM.HP ---
History of Present Illness - Chief Complaint Chief Complaint: Chest Pain for 1 day History of Present Illness: patient is a 63-year-old white female with a history of previous ME who was awaken from sleep with pain which started in the upper abdomen radiating to the chest and made it patient short of breath. She denies any nausea vomiting or diaphoresis she states definitively that the chest pain is not like any previous ME. She also is being treated for GERD with ranitidine substitute. She has a history of ME she has a positive family history her cholesterol has been elevated she was recently started on a medication for that hypertension stated diabetes negative she is a former smoker. - Review of Systems Constitutional: No Fever, No Chills Eyes: No Symptoms Ears, Nose, & Throat: No Symptoms Respiratory: No Cough, No Short Of Breath Cardiac: Chest Pain, No Edema, No Syncope Abdominal/Gastrointestinal: Abdominal Pain, No Nausea, No Vomiting, No Diarrhea Genitourinary Symptoms: No Dysuria Musculoskeletal: No Back Pain, No Neck Pain Skin: No Rash Neurological: No Dizziness, No Focal Weakness, No Sensory Changes Psychological: No Symptoms Endocrine: No Symptoms Hematologic/Lymphatic: No Symptoms Immunological/Allergic: No Symptoms Medications & Allergies Home Medications: Home Medication List Aspirin [Aspirin EC] 162 mg PO DAILY 04/06/19 [History Confirmed 04/06/19] Atorvastatin Calcium [Lipitor] 10 mg PO DAILY 04/06/19 [History Confirmed ] Clonazepam 0.5 mg PO BID PRN PRN 04/06/19 [History Confirmed 04/06/19] Famotidine 20 mg PO BID 04/06/19 [History Confirmed 04/06/19] Lisinopril 2.5 mg PO DAILY 04/06/19 [History Confirmed 04/06/19] Metoprolol Succinate 50 mg [Toprol Xl 50 MG] 50 mg PO DAILY 04/06/19 [ History Confirmed 04/06/19] Nitroglycerin [Nitroglycerin Patch] 0.2 mg TD DAILY 04/06/19 [History Confirmed 04/06/19] Allergies/Adverse Reactions: Allergies Allergy/AdvReac Type Severity Reaction Status Date / Time oseltamivir phosphate AdvReac Verified 04/06/19 01:07 [From Tamiflu] - Past Medical History Past Medical History: Yes Neurological History: No Pertinent History ENT History: No Pertinent History Cardiac History: Coronary Artery Disease, High Cholesterol, Hypertension, Myocardial Infarction (ME) Respiratory History: No Pertinent History Endocrine Medical History: No Pertinent History Musculoskelatal History: No Pertinent History GI Medical History: No Pertinent History History: Other Pyscho-Social History: Anxiety Reproductive Disorders: No Pertinent History Comment: kidney stones - Female History Are you now?: No - Past Surgical History Past Surgical History: Yes Neuro Surgical History: No Pertinent History Cardiac History: Cardiac Catheterization, Cardiac Stent Respiratory Surgery: No Pertinent History GI Surgical History: No Pertinent History Genitourinary Surgical Hx: No Pertinent History Musculskeletal Surgical Hx: Orthopedic Surgery Female Surgical History: Hysterectomy Other Surgical History: in 2001 and 2004 heart cath x2, heart stents x3. - Social History Smoking Status: Former smoker How long have you smoked: 20 Exposure to second hand smoke: No Alcohol: Rarely Drug Use: none - Physical Exam Vital Signs: Vital Signs - 24 hr Temp Pulse Resp BP Pulse Ox 04/06/19 08:00 97.6 F 57 L 16 111/70 94 L 04/06/19 07:39 93 L 04/06/19 03:21 97.5 F 76 20 144/76 95 04/06/19 02:14 96 04/06/19 01:50 73 15 133/87 96 04/06/19 01:17 98 04/06/19 00:50 97.6 F 73 20 163/93 100 General Appearance: no apparent distress, alert Neurologic Exam: alert, oriented x 3, cooperative, normal mood/affect, nml cerebellar function, nml station & gait, sensation nml, No motor deficits Eye Exam: PERRL/EOMI, eyes nml inspection Ears, Nose, Throat Exam: normal ENT inspection, TMs normal, pharynx normal, moist mucous membranes Neck Exam: normal inspection, non-tender, supple, full range of motion Respiratory Exam: normal breath sounds, lungs clear, No respiratory distress Cardiovascular Exam: regular rate/rhythm, normal heart sounds, normal peripheral pulses Gastrointestinal/Abdomen Exam: soft, normal bowel sounds, No tenderness, No mass Back Exam: normal inspection, normal range of motion, No CVA tenderness, No vertebral tenderness Extremity Exam: normal inspection, normal range of motion, pelvis stable Skin Exam: normal color, warm, dry, No rash Lymphatic Exam: No adenopathy Results - Labs Lab/Micro Results: Lab Results-Last 24 Hours 04/06/19 04/06/19 04/06/19 Range/Units 00:55 01:16 01:16 WBC 9.2 (4.0-10.5) K/mm3 RBC 4.76 (4.1-5.4) M/mm3 Hgb 13.7 (12.0-16.0) gm/dl Hct 42.3 (35-47) % MCV 88.9 (78-100) fl MCH 28.8 (26-32) pg MCHC 32.4 (32-36) g/dl RDW 14.2 H (11.5-14.0) % Plt Count 224 (150-450) K/mm3 MPV 9.8 H (6-9.5) fl Gran % 46.2 (36.0-66.0) % Eos # (Auto) 0.56 H (0-0.5) Absolute Lymphs (auto) 3.51 (1.0-4.6) Absolute Monos (auto) 0.83 (0.0-1.3) Lymphocytes % 38.2 (24.0-44.0) % Monocytes % 9.0 (0.0-12.0) % Eosinophils % 6.1 H (0.00-5.0) % Basophils % 0.5 (0.0-0.4) % Absolute Granulocytes 4.25 (1.4-6.9) Basophils # 0.05 (0-0.4) PT (9.95-12.35) SECONDS INR (0.8-3.0) APTT (25.3-37.0) SECONDS D-Dimer (215-500) ng/mL Sodium 141 (137-145) mmol/L Potassium 3.7 (3.5-5.1) mmol/L Chloride 107 (98-107) mmol/L Carbon Dioxide 25 (22-30) mmol/L Anion Gap 12.9 (5-15) MEQ/L BUN 19 H (7-17) mg/dL Creatinine 1.51 H (0.52-1.04) mg/dL Estimated GFR 37.1 ML/MIN Glucose 119 H (74-106) mg/dL Lactic Acid 1.4 (0.4-2.0) Calcium 9.6 (8.4-10.2) mg/dL Total Bilirubin 0.30 (0.2-1.3) mg/dL AST 22 (14-36) U/L ALT 13 (0-35) U/L Alkaline Phosphatase 128 H (38-126) U/L Creatine Kinase 65 (30-135) U/L Troponin I (0.000-0.034) ng/mL NT-Pro-B Natriuret Pep 262 (0-900) pg/mL Serum Total Protein 7.7 (6.3-8.2) g/dL Albumin 4.3 (3.5-5.0) g/dL Triglycerides (30-150) mg/dL Cholesterol (50-200) mg/dL LDL Cholesterol (30-100) mg/dL HDL Cholesterol (40-60) mg/dL Heart Disease Risk Ratio Amylase (30-110) U/L Lipase (23-300) U/L 04/06/19 04/06/19 04/06/19 Range/Units 01:16 01:16 01:16 WBC (4.0-10.5) K/mm3 RBC (4.1-5.4) M/mm3 Hgb (12.0-16.0) gm/dl Hct (35-47) % MCV (78-100) fl MCH (26-32) pg MCHC (32-36) g/dl RDW (11.5-14.0) % Plt Count (150-450) K/mm3 MPV (6-9.5) fl Gran % (36.0-66.0) % Eos # (Auto) (0-0.5) Absolute Lymphs (auto) (1.0-4.6) Absolute Monos (auto) (0.0-1.3) Lymphocytes % (24.0-44.0) % Monocytes % (0.0-12.0) % Eosinophils % (0.00-5.0) % Basophils % (0.0-0.4) % Absolute Granulocytes (1.4-6.9) Basophils # (0-0.4) PT 10.2 (9.95-12.35) SECONDS INR 0.90 (0.8-3.0) APTT 29.2 (25.3-37.0) SECONDS D-Dimer 664 H* (215-500) ng/mL Sodium (137-145) mmol/L Potassium (3.5-5.1) mmol/L Chloride (98-107) mmol/L Carbon Dioxide (22-30) mmol/L Anion Gap (5-15) MEQ/L BUN (7-17) mg/dL Creatinine (0.52-1.04) mg/dL Estimated GFR ML/MIN Glucose (74-106) mg/dL Lactic Acid (0.4-2.0) Calcium (8.4-10.2) mg/dL Total Bilirubin (0.2-1.3) mg/dL AST (14-36) U/L ALT (0-35) U/L Alkaline Phosphatase (38-126) U/L Creatine Kinase (30-135) U/L Troponin I < 0.012 (0.000-0.034) ng/mL NT-Pro-B Natriuret Pep (0-900) pg/mL Serum Total Protein (6.3-8.2) g/dL Albumin (3.5-5.0) g/dL Triglycerides (30-150) mg/dL Cholesterol (50-200) mg/dL LDL Cholesterol (30-100) mg/dL HDL Cholesterol (40-60) mg/dL Heart Disease Risk Ratio Amylase 102 (30-110) U/L Lipase 272 (23-300) U/L 04/06/19 04/06/19 04/06/19 Range/Units 04:25 04:25 07:00 WBC (4.0-10.5) K/mm3 RBC (4.1-5.4) M/mm3 Hgb (12.0-16.0) gm/dl Hct (35-47) % MCV (78-100) fl MCH (26-32) pg MCHC (32-36) g/dl RDW (11.5-14.0) % Plt Count (150-450) K/mm3 MPV (6-9.5) fl Gran % (36.0-66.0) % Eos # (Auto) (0-0.5) Absolute Lymphs (auto) (1.0-4.6) Absolute Monos (auto) (0.0-1.3) Lymphocytes % (24.0-44.0) % Monocytes % (0.0-12.0) % Eosinophils % (0.00-5.0) % Basophils % (0.0-0.4) % Absolute Granulocytes (1.4-6.9) Basophils # (0-0.4) PT (9.95-12.35) SECONDS INR (0.8-3.0) APTT (25.3-37.0) SECONDS D-Dimer (215-500) ng/mL Sodium (137-145) mmol/L Potassium (3.5-5.1) mmol/L Chloride (98-107) mmol/L Carbon Dioxide (22-30) mmol/L Anion Gap (5-15) MEQ/L BUN (7-17) mg/dL Creatinine (0.52-1.04) mg/dL Estimated GFR ML/MIN Glucose (74-106) mg/dL Lactic Acid (0.4-2.0) Calcium (8.4-10.2) mg/dL Total Bilirubin (0.2-1.3) mg/dL AST (14-36) U/L ALT (0-35) U/L Alkaline Phosphatase (38-126) U/L Creatine Kinase (30-135) U/L Troponin I < 0.012 < 0.012 (0.000-0.034) ng/mL NT-Pro-B Natriuret Pep (0-900) pg/mL Serum Total Protein (6.3-8.2) g/dL Albumin (3.5-5.0) g/dL Triglycerides 49 (30-150) mg/dL Cholesterol 142 (50-200) mg/dL LDL Cholesterol 92 (30-100) mg/dL HDL Cholesterol 45 (40-60) mg/dL Heart Disease Risk Ratio 3.2 Amylase (30-110) U/L Lipase (23-300) U/L 04/06/19 Range/Units 10:00 WBC (4.0-10.5) K/mm3 RBC (4.1-5.4) M/mm3 Hgb (12.0-16.0) gm/dl Hct (35-47) % MCV (78-100) fl MCH (26-32) pg MCHC (32-36) g/dl RDW (11.5-14.0) % Plt Count (150-450) K/mm3 MPV (6-9.5) fl Gran % (36.0-66.0) % Eos # (Auto) (0-0.5) Absolute Lymphs (auto) (1.0-4.6) Absolute Monos (auto) (0.0-1.3) Lymphocytes % (24.0-44.0) % Monocytes % (0.0-12.0) % Eosinophils % (0.00-5.0) % Basophils % (0.0-0.4) % Absolute Granulocytes (1.4-6.9) Basophils # (0-0.4) PT (9.95-12.35) SECONDS INR (0.8-3.0) APTT (25.3-37.0) SECONDS D-Dimer (215-500) ng/mL Sodium (137-145) mmol/L Potassium (3.5-5.1) mmol/L Chloride (98-107) mmol/L Carbon Dioxide (22-30) mmol/L Anion Gap (5-15) MEQ/L BUN (7-17) mg/dL Creatinine (0.52-1.04) mg/dL Estimated GFR ML/MIN Glucose (74-106) mg/dL Lactic Acid (0.4-2.0) Calcium (8.4-10.2) mg/dL Total Bilirubin (0.2-1.3) mg/dL AST (14-36) U/L ALT (0-35) U/L Alkaline Phosphatase (38-126) U/L Creatine Kinase (30-135) U/L Troponin I < 0.012 (0.000-0.034) ng/mL NT-Pro-B Natriuret Pep (0-900) pg/mL Serum Total Protein (6.3-8.2) g/dL Albumin (3.5-5.0) g/dL Triglycerides (30-150) mg/dL Cholesterol (50-200) mg/dL LDL Cholesterol (30-100) mg/dL HDL Cholesterol (40-60) mg/dL Heart Disease Risk Ratio Amylase (30-110) U/L Lipase (23-300) U/L - Radiology Impressions Radiology Exams & Impressions: Radiology Procedures Category Date Time Status CHEST 1 VIEW (PORTABLE) Stat Exams 04/06/19 00:57 Completed GALLBLADDER [US] Routine Exams 04/06/19 09:00 Completed - Other Procedures and Tests Respiratory Therapy 04/07/19 05:00 EKG DAILY 04/08/19 05:00 EKG DAILY 04/09/19 05:00 EKG DAILY Assessment/Plan (1) Cholelithiasis Current Visit: Yes Status: Acute Qualifiers: Cholelithiasis location: gallbladder Cholecystitis acuity: acute Biliary obstruction: without biliary obstruction Assessment & Plan: Chief Complaint Diagnosis Chest Pain Allergies Allergy/AdvReac Type Severity Reaction Status Date / Time oseltamivir phosphate AdvReac Verified 04/06/19 01:07 [From Tamiflu] Vital Signs (Last 24 hours) Temp Pulse Resp BP Pulse Ox 04/06/19 08:00 97.6 F 57 L 16 111/70 94 L 04/06/19 07:39 93 L 04/06/19 03:21 97.5 F 76 20 144/76 95 04/06/19 02:14 96 04/06/19 01:50 73 15 133/87 96 04/06/19 01:17 98 04/06/19 00:50 97.6 F 73 20 163/93 100 Home Medications Medication Instructions Recorded Confirmed Last Taken Type Aspirin [Aspirin EC] 162 mg PO DAILY 04/06/19 04/06/19 04/05/19 History Atorvastatin Calcium [Lipitor] 10 mg PO DAILY 04/06/19 04/06/19 04/04/19 History Clonazepam 0.5 mg PO BID PRN PRN 04/06/19 04/06/19 04/05/19 History Famotidine 20 mg PO BID 04/06/19 04/06/19 04/05/19 History Lisinopril 2.5 mg PO DAILY 04/06/19 04/06/19 04/05/19 History Metoprolol Succinate 50 mg 50 mg PO DAILY 04/06/19 04/06/19 04/05/19 History [Toprol Xl 50 MG] Nitroglycerin [Nitroglycerin Patch] 0.2 mg TD DAILY 04/06/19 04/06/19 04/05/19 History Current Medications Generic Name Dose Route Start Last Admin Trade Name Freq PRN Reason Stop Dose Admin Acetaminophen 650 mg 04/06/19 02:15 Tylenol 325 Mg PO 05/06/19 02:14 Q4H PRN PRN PAIN AND/OR FEVER Al Hydrox/Mg Hydrox/Simethicone 30 ml 04/06/19 02:15 Maalox Es 30 Ml Unit Dose PO 05/06/19 02:14 Q4H PRN PRN INDIGESTION Aspirin 81 mg 04/06/19 10:00 04/06/19 09:32 Ecotrin 81 Mg PO 05/06/19 09:59 81 mg DAILY HUMZA Administration Clonazepam 0.5 mg 04/06/19 10:00 04/06/19 09:33 Klonopin 0.5 Mg PO 05/06/19 09:59 0.5 mg BID HUMZA Administration Enoxaparin Sodium 80 mg 04/06/19 18:00 Enoxaparin Sodium 1 mg/kg (70 mg) 05/06/19 17:59 SQ Q12H HUMZA Famotidine 20 mg 04/06/19 10:00 04/06/19 09:33 Pepcid 20 Mg Vial IV 05/06/19 09:59 20 mg Q12HT HUMZA Administration Sodium Chloride 1,000 mls @ 100 mls/hr 04/06/19 01:00 04/06/19 03:12 Sodium Chloride 0.9% 1000 Ml IV 05/06/19 00:59 100 mls/hr .Q10H HUMZA Administration Lisinopril 2.5 mg 04/06/19 10:00 04/06/19 09:32 Zestril 5 Mg PO 05/06/19 09:59 2.5 mg DAILY HUMZA Administration Magnesium Hydroxide 30 - 60 ml 04/06/19 02:15 Milk Of Magnesia 30 Ml PO 05/06/19 02:14 QDP PRN CONSTIPATION Metoprolol Succinate 50 mg 04/06/19 10:00 04/06/19 09:32 Toprol-Xl 25mg Tablets PO 05/06/19 09:59 50 mg DAILY HUMZA Administration Nitroglycerin 0.2 mg 04/06/19 08:00 04/06/19 09:34 Nitro-Dur 0.2 Mg/Hr TD 05/06/19 07:59 Not Given DAILY@0800 HUMZA Ondansetron HCl 4 mg 04/06/19 02:15 Zofran 4 Mg/2 Ml Vial IV 05/06/19 02:14 Q4H PRN PRN NAUSEA/VOMITING Senna/Docusate Sodium 2 udtab 04/06/19 02:15 Senokot-S Tablet PO 05/06/19 02:14 BID PRN PRN CONSTIPATION Simvastatin 10 mg 04/06/19 22:00 Zocor 10mg PO 05/06/19 21:59 HS HUMZA Discontinued Medications Generic Name Dose Route Start Last Admin Trade Name Freq PRN Reason Stop Dose Admin Enoxaparin Sodium 70 mg 04/06/19 02:15 04/06/19 06:28 Enoxaparin Sodium 1 mg/kg (70 mg) 05/06/19 02:14 70 mg SQ Administration Q12H HUMZA Fentanyl Citrate 50 mcg 04/06/19 00:59 04/06/19 01:25 Sublimaze 100 Mcg/2 Ml IV 04/06/19 01:00 50 mcg STAT ONE Administration Fentanyl Citrate Confirm 04/06/19 01:18 Sublimaze 100 Mcg/2 Ml Administered 04/06/19 01:19 Dose 100 mcg .ROUTE .STK-MED ONE Ondansetron HCl 4 mg 04/06/19 00:59 04/06/19 01:26 Zofran 4 Mg/2 Ml Vial IV 04/06/19 01:00 4 mg STAT ONE Administration Ondansetron HCl Confirm 04/06/19 01:17 Zofran 4 Mg/2 Ml Vial Administered 04/06/19 01:18 Dose 4 mg .ROUTE .STK-MED ONE Pantoprazole Sodium 40 mg 04/06/19 00:59 04/06/19 01:25 Protonix 40 Mg Iv IV 04/06/19 01:00 40 mg STAT ONE Administration Pantoprazole Sodium Confirm 04/06/19 01:17 Protonix 40 Mg Iv Administered 04/06/19 01:18 Dose 40 mg IV .STK-MED ONE Intake & Output (Last 24 hours) 04/04/19 04/05/19 04/06/19 04/07/19 11:59 11:59 11:59 11:59 Intake Total 0 Balance 0 Weight 75.7 kg Laboratory Results (Last 24 hours) 04/06/19 04/06/19 04/06/19 10:00 07:00 04:25 WBC RBC Hgb Hct MCV MCH MCHC RDW Plt Count MPV Gran % Eos # (Auto) Absolute Lymphs (auto) Absolute Monos (auto) Lymphocytes % Monocytes % Eosinophils % Basophils % Absolute Granulocytes Basophils # PT INR APTT D-Dimer Sodium Potassium Chloride Carbon Dioxide Anion Gap BUN Creatinine Estimated GFR Glucose Lactic Acid Calcium Total Bilirubin AST ALT Alkaline Phosphatase Creatine Kinase Troponin I < 0.012 < 0.012 NT-Pro-B Natriuret Pep Serum Total Protein Albumin Triglycerides 49 Cholesterol 142 LDL Cholesterol 92 HDL Cholesterol 45 Heart Disease Risk Ratio 3.2 Amylase Lipase 04/06/19 04/06/19 04/06/19 04:25 01:16 01:16 WBC RBC Hgb Hct MCV MCH MCHC RDW Plt Count MPV Gran % Eos # (Auto) Absolute Lymphs (auto) Absolute Monos (auto) Lymphocytes % Monocytes % Eosinophils % Basophils % Absolute Granulocytes Basophils # PT INR APTT D-Dimer Sodium Potassium Chloride Carbon Dioxide Anion Gap BUN Creatinine Estimated GFR Glucose Lactic Acid Calcium Total Bilirubin AST ALT Alkaline Phosphatase Creatine Kinase Troponin I < 0.012 < 0.012 NT-Pro-B Natriuret Pep Serum Total Protein Albumin Triglycerides Cholesterol LDL Cholesterol HDL Cholesterol Heart Disease Risk Ratio Amylase 102 Lipase 272 04/06/19 04/06/19 04/06/19 01:16 01:16 01:16 WBC 9.2 RBC 4.76 Hgb 13.7 Hct 42.3 MCV 88.9 MCH 28.8 MCHC 32.4 RDW 14.2 H Plt Count 224 MPV 9.8 H Gran % 46.2 Eos # (Auto) 0.56 H Absolute Lymphs (auto) 3.51 Absolute Monos (auto) 0.83 Lymphocytes % 38.2 Monocytes % 9.0 Eosinophils % 6.1 H Basophils % 0.5 Absolute Granulocytes 4.25 Basophils # 0.05 PT 10.2 INR 0.90 APTT 29.2 D-Dimer 664 H* Sodium 141 Potassium 3.7 Chloride 107 Carbon Dioxide 25 Anion Gap 12.9 BUN 19 H Creatinine 1.51 H Estimated GFR 37.1 Glucose 119 H Lactic Acid Calcium 9.6 Total Bilirubin 0.30 AST 22 ALT 13 Alkaline Phosphatase 128 H Creatine Kinase 65 Troponin I NT-Pro-B Natriuret Pep 262 Serum Total Protein 7.7 Albumin 4.3 Triglycerides Cholesterol LDL Cholesterol HDL Cholesterol Heart Disease Risk Ratio Amylase Lipase 04/06/19 00:55 WBC RBC Hgb Hct MCV MCH MCHC RDW Plt Count MPV Gran % Eos # (Auto) Absolute Lymphs (auto) Absolute Monos (auto) Lymphocytes % Monocytes % Eosinophils % Basophils % Absolute Granulocytes Basophils # PT INR APTT D-Dimer Sodium Potassium Chloride Carbon Dioxide Anion Gap BUN Creatinine Estimated GFR Glucose Lactic Acid 1.4 Calcium Total Bilirubin AST ALT Alkaline Phosphatase Creatine Kinase Troponin I NT-Pro-B Natriuret Pep Serum Total Protein Albumin Triglycerides Cholesterol LDL Cholesterol HDL Cholesterol Heart Disease Risk Ratio Amylase Lipase Orders (Last 24 hours) Category Date Time Status Bedrest with BRP/BSC Activity 04/06/19 02:15 Active Up With Assistance Activity 04/06/19 02:17 Active Parking Enforcement Officer STAT Care 04/06/19 00:58 Completed Code Status Order ROUTINE Care 04/06/19 02:15 Active EKG-ER Only STAT Care 04/06/19 00:57 Completed IV Care Q6H Care 04/06/19 02:15 Active IV Insertion STAT Care 04/06/19 00:57 Completed Implement Chest Pain Pathway ROUTINE Care 04/06/19 02:[address] in Observation ROUTINE Care 04/06/19 02:15 Active Pulse Oximetry (ED) STAT Care 04/06/19 00:57 Completed Thaddeus Laws, Apply ROUTINE Care 04/06/19 02:15 Active Telemetry q6h Care 04/06/19 03:51 Active Weight,Daily 0600 Care 04/06/19 02:15 Active Consult Surgery ROUTINE Cons 04/06/19 12:21 Active Cardiac Diet Diet 04/06/19 Breakfast Completed NPO Diet 04/06/19 12:23 Active CHEST 1 VIEW (PORTABLE) Stat Exams 04/06/19 00:57 Completed GALLBLADDER [US] Routine Exams 04/06/19 09:00 Completed ABG [ARTERIAL BLOOD GASES] Routine Lab 04/06/19 08:44 Received AMYLASE Stat Lab 04/06/19 01:16 Completed CBC W DIFF Stat Lab 04/06/19 01:16 Completed CK-Creatinine Phosphokinase Stat Lab 04/06/19 01:16 Completed CMP Stat Lab 04/06/19 01:16 Completed D-DIMER QUANTITATION Stat Lab 04/06/19 01:16 Completed LIPASE Stat Lab 04/06/19 01:16 Completed LIPID PROFILE AM.LAB Lab 04/06/19 04:25 Completed Lactic Acid Stat Lab 04/06/19 00:55 Completed NT PRO BNP Stat Lab 04/06/19 01:16 Completed PROTIME WITH INR Stat Lab 04/06/19 01:16 Completed PTT Stat Lab 04/06/19 01:16 Completed TROPONIN Q3H Lab 04/06/19 01:16 Completed TROPONIN Q3H Lab 04/06/19 04:25 Completed TROPONIN Q3H Lab 04/06/19 07:00 Completed TROPONIN Q3H Lab 04/06/19 10:00 Completed TROPONIN Q3H Lab 04/06/19 13:08 Received Acetaminophen 325 mg [Tylenol 325 mg] Med 04/06/19 02:15 Active 650 mg PO Q4H PRN PRN Aspirin EC 81 mg [Ecotrin 81 mg] Med 04/06/19 10:00 Active 81 mg PO DAILY Clonazepam 0.5 mg [Klonopin 0.5 MG] Med 04/06/19 10:00 Active 0.5 mg PO BID Enoxaparin Sodium [Enoxaparin Sodium] Med 04/06/19 18:00 Active 80 mg SQ Q12H Enoxaparin Sodium [Enoxaparin Sodium] Med 04/06/19 02:15 Discontinued See Dose Instructions SQ Q12H Famotidine 20 mg Vial [Pepcid 20 MG VIAL] Med 04/06/19 10:00 Active 20 mg IV Q12HT Fentanyl Citrate 100 Mcg/2 ml* [Sublimaze 100 Mcg/2 ml* Med 04/06/19 01:18 Discontinued ] 100 mcg .ROUTE .STK-MED ONE Fentanyl Citrate 100 Mcg/2 ml* [Sublimaze 100 Mcg/2 ml* Med 04/06/19 00:59 Discontinued ] 50 mcg IV STAT ONE Lisinopril 5 mg [Zestril 5 MG] Med 04/06/19 10:00 Active 2.5 mg PO DAILY Mag Hydrox/Al Hydrox/Simeth [Maalox Es 30 ml Unit Med 04/06/19 02:15 Active Dose] 30 ml PO Q4H PRN PRN Magnesium Hydroxide 30 ml [Milk of Magnesia 30 ml Med 04/06/19 02:15 Active ] 30 - 60 ml PO QDP PRN Metoprolol Succinate 25 mg Xl* [Toprol-Xl 25MG Tablets* Med 04/06/19 10:00 Active ] 50 mg PO DAILY NaCl 0.9% 1000 ml [Sodium Chloride 0.9% 1000 ML] 1,000 Med 04/06/19 01:00 Active ml IV 100 mls/hr Nitroglycerin 0.2 mg/Hr [Nitro-Dur 0.2 mg/Hr] Med 04/06/19 08:00 Active 0.2 mg TD DAILY@0800 Ondansetron HCl 4 mg/2 ml [Zofran 4 MG/2 ML VIAL] Med 04/06/19 01:17 Discontinued 4 mg .ROUTE .STK-MED ONE Ondansetron HCl 4 mg/2 ml [Zofran 4 MG/2 ML VIAL] Med 04/06/19 02:15 Active 4 mg IV Q4H PRN PRN Ondansetron HCl 4 mg/2 ml [Zofran 4 MG/2 ML VIAL] Med 04/06/19 00:59 Discontinued 4 mg IV STAT ONE Pantoprazole 40 mg [Protonix 40 mg IV] Med 04/06/19 01:17 Discontinued 40 mg IV .STK-MED ONE Pantoprazole 40 mg [Protonix 40 mg IV] Med 04/06/19 00:59 Discontinued 40 mg IV STAT ONE Senna/Docusate Sodium Tab [Senokot-S Tablet] Med 04/06/19 02:15 Active 2 udtab PO BID PRN PRN Simvastatin 10 mg [Zocor 10MG] Med 04/06/19 22:00 Active 10 mg PO HS EKG DAILY RT 04/07/19 05:00 Active EKG DAILY RT 04/08/19 05:00 Active EKG DAILY RT 04/09/19 05:00 Active EKG Q8HX2,QAMX3,PRN RT 04/06/19 02:15 Completed EKG ROUTINE RT 04/06/19 09:00 Completed Pulse Oximetry Q4H RT 04/06/19 02:15 Completed Transfer Order Routine Transfer 04/06/19 Completed (2) Chest pain Current Visit: Yes Status: Acute Qualifiers: Chest pain type: unspecified Qualified Code(s): R07.9 - Chest pain, unspecified Code(s): R07.9 - CHEST PAIN, UNSPECIFIED
[2019-04-06] MEDS ORDERED: MEFOXIN 2 GM PREMIX** 2 GM/50 ML ML IV SCH (14:00)
[2019-04-06] MEDS ORDERED: Lactated Ringers 1,000 ML IV SCH (14:00)
[2019-04-06] MEDS ORDERED: Zemuron 100 MG/10 ML ONE (14:05)
[2019-04-06] MEDS ORDERED: DIPRIVAN 200 MG/20 ML IV ONE (14:05)
[2019-04-06] MEDS ORDERED: Quelicin Fliptop 200 MG/10 ML ONE (14:05)
[2019-04-06] MEDS: Klonopin 0.5 MG PO PRN (14:11)
[2019-04-06] MEDS ORDERED: Sensorcaine 0.25% 10 ML ONE (14:59)
[2019-04-06] MEDS ORDERED: Lactated Ringers 1,000 ML IV ONE (14:59)
[2019-04-06] MEDS ORDERED: Ephedrine Sulfate 50 MG/ML ONE (16:05)
[2019-04-06] MEDS ORDERED: BRIDION 200MG/2ML IV ONE (16:21)
[2019-04-06] MEDS ORDERED: Decadron 4 MG INJ ONE (16:21)
[2019-04-06] MEDS ORDERED: TORAdol 30 mg Injection ONE (16:21)
[2019-04-06] MEDS ORDERED: MORPHINE SULFATE 2 MG INJ IV PRN (18:06)
[2019-04-06] MEDS ORDERED: Zocor 10MG PO SCH (22:00)
[2019-04-06] MEDS: Pepcid 20 MG PO SCH (22:24)
[2019-04-07 07:30] VITALS: PULSE 67; O2SAT 95
[2019-04-07] MEDS ORDERED: Zofran 4 MG/2 ML VIAL IV PRN (07:33)
--- NOTE | 2019-04-07 07:49 | CONS ---
CONSULT DATE: 04/06/2019 Dr. Paez is service loss control consultant for our group today and tied up in [place]. He asked that I see the patient. HISTORY: A 63 year-old female had epigastric chest pain woke her up, had some nausea. Cardiac etiology is ruled out. She had study showed cholelithiasis. Her pain improved a little bit and thought she had cholelithiasis, mild chronic cholecystitis. I felt she would benefit from cholecystectomy. PAST MEDICAL HISTORY: Coronary artery disease, hypertension, hyperlipidemia, history of myocardial infarction in the past. Anxiety in the past. PAST SURGICAL HISTORY: Hysterectomy in the past. Coronary stents in the past. Orthopedic surgery. She denied any prior abdominal surgery. MEDICATIONS: she has been on aspirin, lisinopril, Toprol XL, Nitro-Dur, atorvastatin, clonazepam, famotidine. ALLERGIES: TAMIFLU. FAMILY HISTORY: Negative in regards to this problem. REVIEW OF SYSTEMS: Fourteen systems reviewed. No chest pain or palpitations currently. No fever or chills. Afebrile. Vital signs stable. Other systems negative or noncontributory as above and per preadmission questionnaire. LAB DATA AND TESTS: Her bilirubin was okay. Her amylase and lipase were okay. I do believe they said her white count was okay although I cannot find a value on the chart now. She had cholelithiasis. IMPRESSION: Symptomatic cholelithiasis probably acute exacerbation of chronic cholecystitis. I feel the patient will benefit from cholecystectomy. She is explained the procedure in detail but not limited to bleeding or infection, risk of trocar injury or hernia, small risk bowel, bladder or blood vessel injury, small risk of bile leak, bile duct injury, retained stone or sludge possibly requiring further procedure either open or ERCP, general risk of anesthesia, deep venous thrombosis, pulmonary embolism, pneumonia, perioperative risk of aches, pains, bloating, constipation and/or loose stools possibly chronic in nature. General risk of anesthesia but not limited to. Consent was obtained. Will proceed with laparoscopic cholecystectomy with possible open as an outpatient.
[2019-04-07] MEDS: NITRO-DUR 0.2 MG/HR TD SCH (07:55)
[2019-04-07] MEDS: NORCO 5/325 MG PO PRN ×2 (07:55→13:08)
--- NOTE | 2019-04-07 08:26 | OP ---
SURGERY DATE/TIME: 04/06/2019 1546 PREOPERATIVE DIAGNOSIS: Symptomatic cholelithiasis, acute exacerbation of chronic cholecystitis. POSTOPERATIVE DIAGNOSIS: Symptomatic cholelithiasis, acute exacerbation of chronic cholecystitis. PROCEDURE: Laparoscopic cholecystectomy. SURGEON: Dr. Brayan Winston. ANESTHESIA: General. ESTIMATED BLOOD LOSS: Minimal. INDICATIONS: As noted above. Risks and benefits explained in detail but not limited to and consent obtained. DESCRIPTION OF PROCEDURE AND FINDINGS: The patient was taken to the operating room. General anesthesia induced. Abdomen prepped and draped in the usual sterile fashion. After official time out and no disagreement with planned procedure, a transverse incision made at the supraumbilical area. Fascia grasped and pulled upward. Veress needle inserted and tested with saline. Pneumoperitoneum accomplished insufflating opening pressure of 0-15. A 5 mm bladeless port and camera inserted without difficulty followed by two - 5 mm right upper quadrant ports and 11 mm epigastric port to start with. She had some evidence of some [id number] type adhesions above the liver. The gallbladder was distended and some chronic inflammatory reaction around it. Dissection carried posterior, lateral to anterior fashion. Slowly and carefully the main cystic artery isolated directly on the gallbladder wall clipped x3 and divided in usual fashion, this opened up the angle. The cystic duct and infundibular area slowly and carefully well skeletonized until the critical view obtained both anteriorly and posteriorly. Once this was accomplished, the cystic duct was isolated until critical view obtained both anteriorly and posteriorly well away from the visible common duct. Once this was isolated it was then clipped as this was a patulous cystic duct it was felt that more secure would be a large, large clipper. Therefore the 12 port was replaced up in the epigastrium and a large, large clipper used clipping x3. The patulous cystic duct was going down to visible common duct was then clipped and divided in usual fashion. A small amount of bile seeped from the gallbladder site. Gallbladder slowly and carefully dissected free from its dense attachment to liver bed, staying directly on the gallbladder wall clipping additional oozing side branches off the cystic artery as necessary directly on the gallbladder wall slowly and carefully dissected free. Just prior to releasing from final attachments to the anterior edge of the liver, the liver bed re-inspected. Clips noted in place cystic duct, cystic artery stumps. There are no signs of any active bleeding or bile leakage from the liver bed itself. There was some oozing area where the capsule near the anterior edge of the liver and there is no visible vessel to cauterize or clip. A small piece of Surgicel placed in these two small areas in the anterior edge of the liver to be resorbed over time. Otherwise, clips noted in place cystic duct and cystic artery stumps. No signs of any active bleeding or bile leakage at this time. The gallbladder had been released from final attachments to anterior edge of the liver, pulled up into the epigastric wound. It was opened. A large stone was carefully removed allowing the gallbladder to be pulled free and passed off. Port is replaced. Copious amount of irrigation accomplished lateral to the liver and subhepatic space irrigating until clear. Liver bed re-inspected. Clips noted in place cystic duct and cystic artery stump. There were no signs of any active bleeding or bile leakage. It was felt there is no benefit from drain placement. Fascial defect 03/08 site closed with puncture closure device with #1 Vicryl. Pneumoperitoneum decompressed. The wound irrigated out. Skin incision closed with 4-0 Vicryl. Steri-Strips and sterile dressing applied. 0.25% Marcaine local injected along the skin incision fascial defect. The patient tolerated the procedure well. There were no immediate complications. Findings discussed with the family out in the waiting area.
[2019-04-07] MEDS ORDERED: ECOTRIN 81 MG PO SCH (10:00)
[2019-04-07] MEDS: Zestril 5 MG PO SCH (10:08)
[2019-04-07] MEDS: Toprol-Xl 25MG Tablets PO SCH (10:08)
[2019-04-07] MEDS: Pepcid 20 MG PO SCH (10:09)
[2019-04-07] MEDS: Klonopin 0.5 MG PO PRN (10:20)
[2019-04-07] MEDS ORDERED: ENOXAPARIN SODIUM SQ SCH (11:00)
[2019-04-07 11:30] VITALS: BP 103/54
--- NOTE | 2019-04-08 18:19 | PCM.DS ---
Discharge Summary Date of Admission: 04/06/19 02:52 Admitting Physician: CONCHITA STAFFORD Consults: Consults on Case 04/06/19 12:21 Consult Surgery ROUTINE Primary Care Provider: CONCHITA STAFFORD Allergies Allergies oseltamivir phosphate [From Tamiflu] Adverse Reaction (Verified 04/06/19 01:07) Hospital Summary - Hospital Course Hospital Course: Chief Complaint Diagnosis Chest Pain for 1 day Allergies Allergy/AdvReac Type Severity Reaction Status Date / Time oseltamivir phosphate AdvReac Verified 04/06/19 01:07 [From Tamiflu] Home Medications Medication Instructions Recorded Confirmed Last Taken Type Aspirin [Aspirin EC] 162 mg PO DAILY 04/06/19 04/06/19 04/05/19 History Atorvastatin Calcium [Lipitor] 10 mg PO DAILY 04/06/19 04/06/19 04/04/19 History Clonazepam 0.5 mg PO BID PRN PRN 04/06/19 04/06/19 04/05/19 History Famotidine 20 mg PO BID 04/06/19 04/06/19 04/05/19 History Lisinopril 2.5 mg PO DAILY 04/06/19 04/06/19 04/05/19 History Metoprolol Succinate 50 mg 50 mg PO DAILY 04/06/19 04/06/19 04/05/19 History [Toprol Xl 50 MG] Nitroglycerin [Nitroglycerin Patch] 0.2 mg TD DAILY 04/06/19 04/06/19 04/05/19 History Hydrocodone/APAP 5-325 Tab^^^ 2 tab PO Q4HPRN PRN #10 tablet MDD 04/07/19 Unknown Rx [[place] 5-325 Tablet^^^] 6 Current Medications Discontinued Medications Generic Name Dose Route Start Last Admin Trade Name Freq PRN Reason Stop Dose Admin Acetaminophen 650 mg 04/06/19 02:15 Tylenol 325 Mg PO 05/06/19 02:14 Q4H PRN PRN PAIN AND/OR FEVER Hydrocodone Bitart/Acetaminophen 1 tab 04/06/19 18:04 04/07/19 13:08 Stan[place] 5/325 Mg PO 04/11/19 18:03 1 tab Q4H PRN PRN Administration PAIN Al Hydrox/Mg Hydrox/Simethicone 30 ml 04/06/19 02:15 Maalox Es 30 Ml Unit Dose PO 05/06/19 02:14 Q4H PRN PRN INDIGESTION Aspirin 81 mg 04/06/19 10:00 04/06/19 09:32 Ecotrin 81 Mg PO 05/06/19 09:59 81 mg DAILY HUMZA Administration Aspirin 162 mg 04/07/19 10:00 04/07/19 10:08 Ecotrin 81 Mg PO 05/06/19 09:59 162 mg DAILY HUMZA Administration Bupivacaine HCl Confirm 04/06/19 14:59 Sensorcaine 0.25% 10 Ml Administered 04/06/19 15:00 Dose 10 ml .ROUTE .STK-MED ONE Clonazepam 0.5 mg 04/06/19 10:00 04/06/19 09:33 Klonopin 0.5 Mg PO 05/06/19 09:59 0.5 mg BID HUMZA Administration Clonazepam 0.5 mg 04/06/19 14:00 04/07/19 10:20 Klonopin 0.5 Mg PO 05/06/19 09:59 0.5 mg BID PRN PRN Administration Dexamethasone Sodium Phosphate Confirm 04/06/19 16:21 Decadron 4 Mg Inj Administered 04/06/19 16:22 Dose 8 mg .ROUTE .STK-MED ONE Enoxaparin Sodium 70 mg 04/06/19 02:15 04/06/19 06:28 Enoxaparin Sodium 1 mg/kg (70 mg) 05/06/19 02:14 70 mg SQ Administration Q12H [facility] Enoxaparin Sodium 80 mg 04/06/19 18:00 04/06/19 18:14 Enoxaparin Sodium 1 mg/kg (70 mg) 05/06/19 17:59 Not Given SQ Q12H [facility] Enoxaparin Sodium 80 mg 04/07/19 11:00 04/07/19 10:10 Enoxaparin Sodium 1 mg/kg (70 mg) 05/07/19 10:59 80 mg SQ Administration Q12H [facility] Ephedrine Sulfate Confirm 04/06/19 16:05 Ephedrine Sulfate 50 Mg/Ml Administered 04/06/19 16:06 Dose 50 mg .ROUTE .STK-MED ONE Famotidine 20 mg 04/06/19 10:00 04/06/19 09:33 Pepcid 20 Mg Vial IV 05/06/19 09:59 20 mg Q12HT HUMZA Administration Famotidine 20 mg 04/06/19 22:00 04/07/19 10:09 Pepcid 20 Mg PO 05/06/19 21:59 20 mg BID HUMZA Administration Fentanyl Citrate 50 mcg 04/06/19 00:59 04/06/19 01:25 Sublimaze 100 Mcg/2 Ml IV 04/06/19 01:00 50 mcg STAT ONE Administration Fentanyl Citrate Confirm 04/06/19 01:18 Sublimaze 100 Mcg/2 Ml Administered 04/06/19 01:19 Dose 100 mcg .ROUTE .STK-MED ONE Fentanyl Citrate Confirm 04/06/19 14:05 Sublimaze 100 Mcg/2 Ml Administered 04/06/19 14:06 Dose 100 mcg .ROUTE .STK-MED ONE Sodium Chloride 1,000 mls @ 100 mls/hr 04/06/19 01:00 04/06/19 22:12 Sodium Chloride 0.9% 1000 Ml IV 05/06/19 00:59 100 mls/hr .Q10H HUMZA Administration Lactated Ringer's 1,000 mls @ 50 mls/hr 04/06/19 14:00 04/06/19 14:10 Lactated Ringers IV 05/06/19 13:59 50 mls/hr .Q20H HUMZA Administration Cefoxitin Sodium 2 gm in 50 mls @ 100 mls/hr 04/06/19 14:00 04/06/19 14:23 Mefoxin 2 Gm Premix IV 04/06/19 19:00 100 mls/hr ONCALLTOOR HUMZA Administration Lactated Ringer's Confirm 04/06/19 14:59 Lactated Ringers Administered 04/06/19 15:00 Dose 1,000 mls @ ud IV .STK-MED ONE Ketorolac Tromethamine Confirm 04/06/19 16:21 Toradol 30 Mg Injection Administered 04/06/19 16:22 Dose 30 mg .ROUTE .STK-MED ONE Lisinopril 2.5 mg 04/06/19 10:00 04/07/19 10:08 Zestril 5 Mg PO 05/06/19 09:59 2.5 mg DAILY HUMZA Administration Magnesium Hydroxide 30 - 60 ml 04/06/19 02:15 Milk Of Magnesia 30 Ml PO 05/06/19 02:14 QDP PRN CONSTIPATION Metoprolol Succinate 50 mg 04/06/19 10:00 04/07/19 10:08 Toprol-Xl 25mg Tablets PO 05/06/19 09:59 50 mg DAILY HUMZA Administration Morphine Sulfate 2 mg 04/06/19 18:06 Morphine Sulfate 2 Mg Inj IV 04/11/19 18:05 Q1H/PRN PRN PAIN Nitroglycerin 0.2 mg 04/06/19 08:00 04/07/19 07:55 Nitro-Dur 0.2 Mg/Hr TD 05/06/19 07:59 0.2 mg DAILY@0800 HUMZA Administration Non-Formulary Medication 1 each 04/06/19 22:00 04/06/19 22:26 Remove Patch Reminder TOP 05/06/19 21:59 1 each HS HUMZA Administration Ondansetron HCl 4 mg 04/06/19 00:59 04/06/19 01:26 Zofran 4 Mg/2 Ml Vial IV 04/06/19 01:00 4 mg STAT ONE Administration Ondansetron HCl Confirm 04/06/19 01:17 Zofran 4 Mg/2 Ml Vial Administered 04/06/19 01:18 Dose 4 mg .ROUTE .STK-MED ONE Ondansetron HCl 4 mg 04/06/19 02:15 04/06/19 17:58 Zofran 4 Mg/2 Ml Vial IV 05/06/19 02:14 4 mg Q4H PRN PRN Administration NAUSEA/VOMITING Ondansetron HCl Confirm 04/06/19 16:21 Zofran 4 Mg/2 Ml Vial Administered 04/06/19 16:22 Dose 4 mg .ROUTE .STK-MED ONE Ondansetron HCl 4 mg 04/06/19 18:05 Zofran 4 Mg/2 Ml Vial IV 05/06/19 18:04 Q6H PRN PRN NAUSEA/VOMITING Ondansetron HCl 4 mg 04/07/19 07:33 Zofran 4 Mg/2 Ml Vial IV 01/11/20 07:32 Q6H PRN PRN NAUSEA/VOMITING Pantoprazole Sodium 40 mg 04/06/19 00:59 04/06/19 01:25 Protonix 40 Mg Iv IV 04/06/19 01:00 40 mg STAT ONE Administration Pantoprazole Sodium Confirm 04/06/19 01:17 Protonix 40 Mg Iv Administered 04/06/19 01:18 Dose 40 mg IV .STK-MED ONE Propofol Confirm 04/06/19 14:05 Diprivan 200 Mg/20 Ml Administered 04/06/19 14:06 Dose 200 mg IV .STK-MED ONE Rocuronium Palisade Confirm 04/06/19 14:05 Zemuron 100 Mg/10 Ml Administered 04/06/19 14:06 Dose 30 mg .ROUTE .STK-MED ONE Senna/Docusate Sodium 2 udtab 04/06/19 02:15 Senokot-S Tablet PO 05/06/19 02:14 BID PRN PRN CONSTIPATION Simvastatin 10 mg 04/06/19 22:00 04/06/19 22:24 Zocor 10mg PO 05/06/19 21:59 10 mg HS HUMZA Administration Succinylcholine Chloride Confirm 04/06/19 14:05 Quelicin Fliptop 200 Mg/10 Ml Administered 04/06/19 14:06 Dose 100 mg .ROUTE .STK-MED ONE Sugammadex Sodium Confirm 04/06/19 16:21 Bridion 200mg/2ml Administered 04/06/19 16:22 Dose 200 mg IV .STK-MED ONE Intake & Output (Last 24 hours) 04/06/19 04/07/19 04/08/19 04/09/19 11:59 11:59 11:59 11:59 Intake Total 0 2975 480 Output Total 1700 600 Balance 0 1275 -120 Weight 75.7 kg 75.9 kg Orders (Last 24 hours) Category Date Time Status EKG DAILY RT 04/08/19 05:00 Active EKG DAILY RT 04/09/19 05:00 Active - Vitals & Intake/Output Vital Signs: Vital Signs Temperature 98.8 F 04/07/19 11:30 Pulse Rate 67 04/07/19 11:30 Respiratory Rate 18 04/07/19 11:30 Blood Pressure 103/54 04/07/19 11:30 O2 Sat by Pulse Oximetry 95 04/07/19 11:30 Oxygen-Last Documented O2 Percentage 2 Liters = 28% Intake & Output: Intake & Output 04/06/19 04/07/19 04/08/19 04/09/19 11:59 11:59 11:59 11:59 Intake Total 0 2975 480 Output Total 1700 600 Balance 0 1275 -120 Weight 75.7 kg 75.9 kg - Lab Result Diagrams: 04/06/19 01:16 04/06/19 01:16 - Procedures and Test Procedures and Tests throughout Hospitalization: Therapy Orders & Screens 04/06/19 02:15 EKG Q8HX2,QAMX3,PRN Comment: 04/06/19 09:00 EKG ROUTINE Comment: Diagnosis: Chest Pain 04/07/19 05:00 EKG DAILY Comment: Diagnosis: Chest Pain 04/08/19 05:00 EKG DAILY Comment: Diagnosis: Chest Pain 04/09/19 05:00 EKG DAILY Comment: Diagnosis: Chest Pain Discharge Exam General Appearance: no apparent distress, alert Neurologic Exam: alert, oriented x 3, cooperative, normal mood/affect, nml cerebellar function, sensation nml, No motor deficits Eye Exam: PERRL, EOMI, eyes nml inspection Ears, Nose, Throat Exam: normal ENT inspection, pharynx normal, moist mucous membranes Neck Exam: normal inspection, non-tender, supple, full range of motion Respiratory Exam: normal breath sounds, lungs clear, No respiratory distress Cardiovascular Exam: regular rate/rhythm, normal heart sounds Gastrointestinal/Abdomen Exam: soft, No tenderness, No mass Pelvic Exam: deferred Rectal Exam: deferred Back Exam: normal inspection, normal range of motion, No CVA tenderness, No vertebral tenderness Extremity Exam: normal inspection, normal range of motion Skin Exam: normal color, warm, dry Final Diagnosis/Problem List - Final Discharge Diagnosis/Problem (1) Cholelithiasis Status: Acute Assessment & Plan: s/p Laparoscopic cholecystectomy by Dr Dias (2) Chest pain Status: Acute Code(s): R07.9 - CHEST PAIN, UNSPECIFIED - Discharge Discharge Date: 04/07/19 Disposition: Home, Self-Care Condition: Stable Prescriptions: New Hydrocodone/APAP 5-325 Tab^^^ [Stanfield 5-325 Tablet^^^] 2 tab PO Q4HPRN PRN # 10 tablet MDD 6 PRN Reason: Pain Continue Aspirin [Aspirin EC] 162 mg PO DAILY Nitroglycerin [Nitroglycerin Patch] 0.2 mg TD DAILY Lisinopril 2.5 mg PO DAILY Famotidine 20 mg PO BID Metoprolol Succinate 50 mg [Toprol Xl 50 MG] 50 mg PO DAILY Clonazepam 0.5 mg PO BID PRN PRN PRN Reason: Anxiety Atorvastatin Calcium [Lipitor] 10 mg PO DAILY Instructions: Laparoscopy, Low Cholesterol, Saturated Fat, and Trans Fat Diet Additional Instructions: DR STAFFORD APPOINTMENT AT [facility] Follow up with: LIDIA DIAS [COURTESY STAFF] - 04/13/19 1:00 pm CONCHITA STAFFORD MD [Primary Care Provider] - 04/14/19 10:15 am Forms: Discharge Instructions
== END 2019-04-07 13:34 | disposition home or self-care (01) ==
LOC: ED 00:49 → MED SURG 02:52
PROVIDERS: ADMIT General Practice; ATTEND General Practice
DX: K80.10 Calculus of gallbladder with chronic cholecystitis without obstruction (principal); R07.9 Chest pain, unspecified; I10 Essential (primary) hypertension; I25.10 Atherosclerotic heart disease of native coronary artery without angina pectoris; E78.5 Hyperlipidemia, unspecified; I25.2 Old myocardial infarction; Z79.899 Other long term (current) drug therapy
CPT/HCPCS: 36000; 36415; 36600; 71045; 76705; 80053; 80061; 82150; 82375; 82550; 82803; 83605; 83690; 83721; 83880; 84484; 85025; 85379; 85610; 85730; 93005; 93041; 94760; 96360; 96374; 96375; 99285; G0378; J0330; J0694; J1100; J1650; J1885; J2405; J2704; J3010; A9270-GY

== ENCOUNTER 2019-04-19 20:26 | Observation (INO) | payer MEDICARE ==
--- NOTE | 2019-04-19 20:35 | ERPHSYRPT ---
- History of Present Illness Time Seen by Provider: 04/19/19 20:35 Source: patient, family Exam Limitations: no limitations Physician History: 63 y/o white female s/p laparoscopic cholecystectomy 04/06/19 dr. carroll. pt on post op pain meds. has had a couple of episodes of bilat upper quad pain but right worse than left. nausea but no vomiting. no dark urine, no acolic stools. had a worse episode at 1pm but not responding to oral pain meds. Timing/Duration: today, worse Associated Symptoms: nausea, abdominal pain, No chest pain Allergies/Adverse Reactions: oseltamivir phosphate [From Tamiflu] Adverse Reaction (Verified 04/06/19 01:07) Home Medications: Aspirin [Aspirin EC] 162 mg PO DAILY 04/06/19 [History] Atorvastatin Calcium [Lipitor] 10 mg PO DAILY 04/06/19 [History] Clonazepam 0.5 mg PO BID PRN PRN 04/06/19 [History] Famotidine 20 mg PO BID 04/06/19 [History] Lisinopril 2.5 mg PO DAILY 04/06/19 [History] Metoprolol Succinate 50 mg [Toprol Xl 50 MG] 50 mg PO DAILY 04/06/19 [ History] Nitroglycerin [Nitroglycerin Patch] 0.2 mg TD DAILY 04/06/19 [History] Hydrocodone/APAP 5-325 Tab^^^ [[place] 5-325 Tablet^^^] 1 tab PO Q4HPRN PRN MDD 6 04/19/19 [History] Hx Tetanus, Diphtheria Vaccination/Date Given: Yes Hx Influenza Vaccination/Date Given: No Hx Pneumococcal Vaccination/Date Given: No - Review of Systems Constitutional: No Symptoms Eyes: No Symptoms Ears, Nose, & Throat: No Symptoms Respiratory: No Symptoms Cardiac: No Symptoms Abdominal/Gastrointestinal: Abdominal Pain, Nausea, Appetite Changes Genitourinary Symptoms: No Symptoms Musculoskeletal: No Symptoms Skin: No Symptoms Neurological: No Symptoms Psychological: No Symptoms Endocrine: No Symptoms Hematologic/Lymphatic: No Symptoms Immunological/Allergic: No Symptoms All Other Systems: Reviewed and Negative - Past Medical History Pertinent Past Medical History: Yes Neurological History: No Pertinent History ENT History: No Pertinent History Cardiac History: Coronary Artery Disease, High Cholesterol, Hypertension, Myocardial Infarction ([place]) Respiratory History: No Pertinent History Endocrine Medical History: No Pertinent History Musculoskeletal History: No Pertinent History GI Medical History: No Pertinent History History: Other Psycho-Social History: Anxiety Female Reproductive Disorders: No Pertinent History Other Medical History: kidney stones - Past Surgical History Past Surgical History: Yes Neuro Surgical History: No Pertinent History Cardiac: Cardiac Catheterization, Cardiac Stent Respiratory: No Pertinent History Gastrointestinal: No Pertinent History Genitourinary: No Pertinent History Musculoskeletal: Orthopedic Surgery Female Surgical History: Hysterectomy Other Surgical History: in 2001 and 2004 heart cath x2, heart stents x3. - Social History Smoking Status: Former smoker How long have you smoked: 20 Exposure to second hand smoke: No Drug Use: none Patient Lives Alone: No - Nursing Vital Signs Nursing Vital Signs: Initial Vital Signs Temperature 97.6 F 04/19/19 20:34 Pulse Rate 79 04/19/19 20:34 Respiratory Rate 20 04/19/19 20:34 Blood Pressure 152/104 04/19/19 20:34 O2 Sat by Pulse Oximetry 96 04/19/19 20:34 Pain Scale Pain Intensity 10 - Physical Exam General Appearance: mild distress, alert, anxiety Eye Exam: PERRL/EOMI Ears, Nose, Throat Exam: normal ENT inspection, moist mucous membranes Neck Exam: normal inspection, non-tender, supple, full range of motion Respiratory Exam: normal breath sounds, lungs clear, airway intact, No chest tenderness, No respiratory distress Cardiovascular Exam: regular rate/rhythm, normal heart sounds, normal peripheral pulses Gastrointestinal/Abdomen Exam: soft, normal bowel sounds, tenderness (bilat upper quad; right > left), guarding Pelvic Exam: not done Rectal Exam: not done Back Exam: normal inspection, normal range of motion, No CVA tenderness, No vertebral tenderness Extremity Exam: normal inspection, normal range of motion, pelvis stable Neurologic Exam: alert, oriented x 3, cooperative, technology coach II-XII nml as tested Skin Exam: normal color, warm, dry Lymphatic Exam: No adenopathy SpO2 Interpretation: normal O2 Delivery: Room Air - Course Nursing assessment & vital signs reviewed: Yes Ordered Tests: Active Orders 24 hr Category Date Time Status IV Insertion STAT Care 04/19/19 20:51 Active ABDOMEN AND PELVIS W/0 CONTRAS [CT] Stat Exams 04/19/19 20:51 Taken AMYLASE Stat Lab 04/19/19 20:50 Completed CBC W DIFF Stat Lab 04/19/19 20:50 Completed CMP Stat Lab 04/19/19 20:50 Completed LIPASE Stat Lab 04/19/19 20:50 Completed Lactic Acid Stat Lab 04/19/19 20:55 Completed UA W/RFX UR CULTURE Stat Lab 04/19/19 20:51 Uncollected Medication Summary Discontinued Medications Generic Name Dose Route Start Last Admin Trade Name Freq PRN Reason Stop Dose Admin Famotidine 20 mg 04/19/19 20:51 04/19/19 21:04 Pepcid 20 Mg Vial IV 04/19/19 20:52 20 mg STAT ONE Administration Famotidine Confirm 04/19/19 20:57 Pepcid 20 Mg Vial Administered 04/19/19 20:58 Dose 20 mg IV .STK-MED ONE Sodium Chloride 1,000 mls @ 999 mls/hr 04/19/19 20:51 04/19/19 23:32 Sodium Chloride 0.9% 1000 Ml IV 04/19/19 21:51 Infused .Q1H1M STA Infusion Sodium Chloride Confirm 04/19/19 20:57 Sodium Chloride 0.9% 1000 Ml Administered 04/19/19 20:58 Dose 1,000 mls @ ud .ROUTE .STK-MED ONE Meperidine HCl 25 mg 04/19/19 20:52 04/19/19 21:04 Demerol 25mg Syringe IV 04/19/19 20:53 25 mg STAT ONE Administration Meperidine HCl Confirm 04/19/19 20:57 Demerol 25mg Syringe Administered 04/19/19 20:58 Dose 25 mg .ROUTE .STK-MED ONE Ondansetron HCl 4 mg 04/19/19 20:51 04/19/19 21:05 Zofran 4 Mg/2 Ml Vial IV 04/19/19 20:52 4 mg STAT ONE Administration Ondansetron HCl Confirm 04/19/19 20:57 Zofran 4 Mg/2 Ml Vial Administered 04/19/19 20:58 Dose 4 mg .ROUTE .STK-MED ONE Lab/Rad Data: Laboratory Result Diagrams 04/19/19 20:50 04/19/19 20:50 Laboratory Results 04/19/19 04/19/19 04/19/19 Range/Units 20:55 20:50 20:50 WBC 8.5 (4.0-10.5) K/mm3 RBC 4.71 (4.1-5.4) M/mm3 Hgb 13.7 (12.0-16.0) gm/dl Hct 41.9 (35-47) % MCV 89.0 (78-100) fl MCH 29.1 (26-32) pg MCHC 32.7 (32-36) g/dl RDW 14.3 H (11.5-14.0) % Plt Count 263 (150-450) K/mm3 MPV 10.0 H (6-9.5) fl Gran % 58.4 (36.0-66.0) % Eos # (Auto) 0.21 (0-0.5) Absolute Lymphs (auto) 2.57 (1.0-4.6) Absolute Monos (auto) 0.73 (0.0-1.3) Lymphocytes % 30.1 (24.0-44.0) % Monocytes % 8.6 (0.0-12.0) % Eosinophils % 2.5 (0.00-5.0) % Basophils % 0.4 (0.0-0.4) % Absolute Granulocytes 4.99 (1.4-6.9) Basophils # 0.03 (0-0.4) Sodium 140 (137-145) mmol/L Potassium 4.1 (3.5-5.1) mmol/L Chloride 105 (98-107) mmol/L Carbon Dioxide 24 (22-30) mmol/L Anion Gap 14.8 (5-15) MEQ/L BUN 18 H (7-17) mg/dL Creatinine 1.74 H (0.52-1.04) mg/dL Estimated GFR 31.5 ML/MIN Glucose 139 H (74-106) mg/dL Lactic Acid 1.6 (0.4-2.0) Calcium 10.3 H (8.4-10.2) mg/dL Total Bilirubin 1.10 (0.2-1.3) mg/dL AST 410 H (14-36) U/L ALT 428 H (0-35) U/L Alkaline Phosphatase 255 H (38-126) U/L Serum Total Protein 7.5 (6.3-8.2) g/dL Albumin 4.5 (3.5-5.0) g/dL Amylase 84 (30-110) U/L Lipase 148 (23-300) U/L - Progress Progress: improved, pain not gone completely, re-examined Progress Note: 04/19/19 22:12 ct abd/pelvis-no post op complications. called [facility], no gi specialists who perform ercp/mrcp. 04/19/19 23:10 [facility] called [facility] at [phone] 04/19/19 23:33 spoke with gi specialists drs. brady and claudio from [facility]. dr. snyder accepts pt for transfer admission. Discussed with : David (spoke with him @[phone]. states pt needs to be transferred to [place] or [place]. no gi available in [place] that performs either mrcp or ercp. ) Counseled pt/family regarding: lab results, diagnosis, rad results - Departure Departure Disposition: Transfer Clinical Impression: Post-op pain, Elevated liver enzymes Condition: Stable Critical Care Time: No Referrals: CONCHITA STAFFORD MD [Primary Care Provider] -
[2019-04-19] MEDS ORDERED: Zofran 4 MG/2 ML VIAL IV ONE ×2 (20:51→23:37)
[2019-04-19] MEDS ORDERED: Sodium Chloride 0.9% 1000 ML 1,000 ML IV STA (20:51)
[2019-04-19] MEDS ORDERED: Pepcid 20 MG VIAL IV ONE ×2 (20:51→20:57)
[2019-04-19] MEDS ORDERED: DEMEROL 25MG SYRINGE IV ONE ×2 (20:52→23:37)
[2019-04-19] MEDS ORDERED: Sodium Chloride 0.9% 1000 ML 1,000 ML ONE (20:57)
[2019-04-19] MEDS ORDERED: Zofran 4 MG/2 ML VIAL ONE ×2 (20:57→23:43)
[2019-04-19] MEDS ORDERED: DEMEROL 25MG SYRINGE ONE ×2 (20:57→23:43)
[2019-04-19 21:03] LABS: Absolute Neutrophil Ct (ANC) 4.99 (1.4-6.9); BASOPHIL % 0.4 % (0.0-0.4); Basophil (Absolute #) 0.03 (0-0.4); Eosinophil % 2.5 % (0.00-5.0); Eosinophil (Absolute #) 0.21 (0-0.5); Hematocrit 41.9 % (35-47); Hemoglobin 13.7 gm/dl (12.0-16.0); Lymphocyte (Absolute #) 2.57 (1.0-4.6); Lymphocytes % 30.1 % (24.0-44.0); Mean Corpuscular Hemoglobin 29.1 pg (26-32); Mean Corpuscular Hgb Concent. 32.7 g/dl (32-36); Monocyte (Absolute #) 0.73 (0.0-1.3); Monocytes % 8.6 % (0.0-12.0); Neutrophil % 58.4 % (36.0-66.0); Platelet Count 263 K/mm3 (150-450); Red Blood Count 4.71 M/mm3 (4.1-5.4); Red Cell Distribution Width 14.3 % (11.5-14.0); White Blood Count 8.5 K/mm3 (4.0-10.5)
[2019-04-19 21:14] LABS: ALBUMIN 4.5 g/dL (3.5-5.0); ANION GAP 14.8 MEQ/L (5-15); BILIRUBIN,TOTAL 1.1 mg/dL (0.2-1.3); Calcium 10.3 mg/dL (8.4-10.2); Creatinine 1 1.74 mg/dL (0.52-1.04); Potassium 4.1 mmol/L (3.5-5.1); Total Protein 7.5 g/dL (6.3-8.2)
[2019-04-20] LABS: Appearance CLEAR (CLEAR); Bacteria NONE SEEN /HPF (NEGATIVE); Bilirubin NEGATIVE (NEGATIVE); Blood NEGATIVE Ery/ul (0-5); Glucose 50 mg/dL (NEGATIVE); Ketones NEGATIVE (NEGATIVE); Leukocyte Esterase SMALL (NEGATIVE); Mucus SLIGHT /HPF (NEGATIVE); Nitrite NEGATIVE (NEGATIVE); Protein,Urine Dip NEGATIVE (Negative); Specific Gravity 1.015 (1.005-1.025); Urobilinogen 4 mg/dL (0-1)
[2019-04-20] MEDS ORDERED: Sodium Chloride 0.9% 1000 ML 1,000 ML IV SCH (00:50)
[2019-04-20] MEDS ORDERED: Zofran 4 MG/2 ML VIAL IV PRN (00:50)
[2019-04-20] MEDS ORDERED: DEMEROL 25MG SYRINGE IV PRN (00:50)
[2019-04-20] MEDS ORDERED: TYLENOL 325 MG PO PRN (00:50)
[2019-04-20] MEDS ORDERED: Sodium Chloride 0.9% 1000 ML 1,000 ML ONE (00:57)
[2019-04-20 01:18] VITALS: BP 125/73; PULSE 69; O2SAT 95
--- NOTE | 2019-04-20 07:43 | XRAY ---
Indication: Right upper quadrant pain and nausea. Status post cholecystectomy April 07, 2019. Multiple contiguous axial images obtained through the abdomen and pelvis without contrast as ordered. Comparison: August 25, 2018. Lung bases again demonstrates mild pulmonary emphysema, fibrosis/scarring, and right base calcified granulomas. No infiltrate or effusion. Heart is not enlarged. Stomach is again distended with food/fluid. Noncontrasted stomach and bowel loops appear nonobstructed. Previous reported appendectomy and hysterectomy. Status post cholecystectomy. No free fluid/air. Stable right renal scarring, bilateral renal cysts, and bilateral renal punctate calcifications. No hydronephrosis or evidence for obstructive uropathy. Remaining liver, pancreas, spleen, adrenal glands, kidneys, ureters, and bladder appear unremarkable for noncontrast exam. Stable heavy aortoiliac calcifications without AAA. Osseous structures intact again with minimal degenerative changes. Impression: 1. Status post cholecystectomy without complications. 2. Stable bilateral renal cysts with punctate calcifications, right renal scarring, and pulmonary emphysema. 3. Remaining CT abdomen/pelvis without contrast exam is negative. CTDI 6.58
== END 2019-04-20 03:05 ==
LOC: ED 20:26 → MED SURG 04-20 00:48
PROVIDERS: ADMIT Family Medicine; ATTEND Family Medicine
DX: R94.5 Abnormal results of liver function studies (principal); R10.9 Unspecified abdominal pain; G89.18 Other acute postprocedural pain; Z98.890 Other specified postprocedural states; Z79.899 Other long term (current) drug therapy
CPT/HCPCS: 36000; 36415; 74176; 80053; 81001; 82150; 83605; 83690; 85025; 87086; 96360; 96374; 96375; 96376; 99285; G0378; J2175; J2405

== ENCOUNTER 2022-04-03 10:22 | Emergency (ER) | payer MEDICARE ==
[2022-04-03] MEDS ORDERED: Sodium Chloride 0.9% 1000 ML 1,000 ML IV STA (10:52)
[2022-04-03 10:59] VITALS: O2SAT 94
[2022-04-03] MEDS ORDERED: Sodium Chloride 0.9% 1000 ML 1,000 ML ONE (11:16)
[2022-04-03 11:19] LABS: Absolute Neutrophil Ct (ANC) 6.58 x10^3/uL (1.4-6.9); Basophil (Absolute #) 0.02 x10^3/uL (0-0.4); Eosinophil % 0.5 % (0.00-5.0); Eosinophil (Absolute #) 0.04 x10^3/uL (0-0.5); Hematocrit 48.3 % (35-47); Hemoglobin 15.5 g/dL (12.0-16.0); Lymphocyte (Absolute #) 0.84 x10^3/uL (1.0-4.6); Lymphocytes % 10.7 % (24.0-44.0); Mean Cell Volume 87.5 fL (78-100); Mean Corpuscular Hemoglobin 28.1 pg (26-32); Mean Corpuscular Hgb Concent. 32.1 g/dL (32-36); Mean Platelet Volume 9.8 fL (7.5-11.0); Monocyte (Absolute #) 0.36 x10^3/uL (0.0-1.3); Monocytes % 4.6 % (0.0-12.0); Neutrophil % 83.5 % (36.0-66.0); Platelet Count 158 x10^3/uL (150-450); Red Blood Count 5.52 x10^6/uL (4.1-5.4); Red Cell Distribution Width 12.6 % (11.5-14.0); White Blood Count 7.9 x10^3/uL (4.0-10.5)
[2022-04-03 11:31] LABS: ALBUMIN 4.4 g/dL (3.5-5.0); ANION GAP 12.9 MEQ/L (5-15); BILIRUBIN,TOTAL 0.7 mg/dL (0.2-1.3); Calcium 8.9 mg/dL (8.4-10.2); Creatinine 1 1.13 mg/dL (0.52-1.04); EST GLOMERULAR FILTRATION RATE 51.4 ML/MIN; Potassium 3.6 mmol/L (3.5-5.1); Total Protein 7.6 g/dL (6.3-8.2)
[2022-04-03 11:32] LABS: INR 0.95 (0.8-3.0); PROTIME 10.1 SECONDS (9.4-12.5)
[2022-04-03 11:32] LABS: Epithelial Cells RARE /HPF (FEW); Hyaline Casts 0-2 /LPF (0-2); Mucus SLIGHT /HPF (NEGATIVE)
[2022-04-03 11:41] LABS: Appearance CLEAR (CLEAR); Bilirubin NEGATIVE (NEGATIVE); Glucose NEGATIVE (NEGATIVE); Ketones NEGATIVE (NEGATIVE); Specific Gravity >=1.030 (1.005-1.025)
[2022-04-03 11:42] LABS: Dipstick done @ ? MAIN LAB; Nitrite NEGATIVE (NEGATIVE); Protein,Urine Dip 100 (Negative); RBC TRACE-INTACT Ery/ul (0-5); Urobilinogen 0.2 mg/dL (0-1)
[2022-04-03 11:44] LABS: Urine Cultured Indicated? NO
[2022-04-03 11:56] LABS: INFLUENZA B NEGATIVE (NEGATIVE); RESPIRATORY SYNCTIAL VIRUS NEGATIVE (Negative); SARS-CoV-2 Xpert Express NEGATIVE (NEGATIVE)
--- NOTE | 2022-04-03 12:04 | XRAY ---
Indication: Nausea, vomiting, and diarrhea. Multiple contiguous images obtained through the abdomen and pelvis without contrast. Comparison: April 19, 2019 Lung bases again demonstrates pulmonary emphysema with scattered fibrosis/scarring. Heart not enlarged. Noncontrasted stomach and bowel loops are nonobstructed. Again appendectomy, cholecystotomy, and hysterectomy. Stable right renal scarring, bilateral renal cysts, and bilateral renal punctate calcifications. No free fluid/air. Remaining liver, pancreas, spleen, adrenal glands, kidneys, ureters, and bladder are unremarkable for noncontrast exam. There remains extensive scattered aortoiliac calcifications without AAA. Osseous structures intact again with minimal degenerative changes throughout the spine and mild dextroscoliosis. Impression: 1. Stable pulmonary emphysema, bilateral renal cysts with punctate calcifications, right renal scarring, arteriosclerotic disease, and chronic bony findings. 2. Remaining CT abdomen/pelvis without contrast exam is again negative.
[2022-04-03 12:06] LABS: INFLUENZA A POSITIVE (NEGATIVE)
[2022-04-03] MEDS ORDERED: APRESOLINE 20 MG/ML INJ IV ONE (12:34)
[2022-04-03] MEDS ORDERED: APRESOLINE 20 MG/ML INJ ONE (12:50)
--- NOTE | 2022-04-03 13:12 | ERPHSYRPT ---
- History of Present Illness Time Seen by Provider: 04/03/22 10:55 Source: patient Exam Limitations: no limitations Patient Subjective Stated Complaint: Pt c/o of fever, diarrhea, body aches, hypertension, and tachycardia for the past week Triage Nursing Assessment: Pt was brought to the ER by her and dropped off, hypertensive, tachycardic, rates overall body pain as 6/10, pt states that she has a hx of 3 KS's and is concerned about her blood pressure, last bowel movement was yesterday, denies vomiting, pt's high fever broke on Thursday and it has been running 98-99 since then and she has just been taking Tylenol to help with it, pulses normal, skin n/w/d, cough with no production, doesn't appear to be in any distress Physician History: Patient is a 66-year-old white female who presents with a complaint of diarrhea. She denies any abdominal pain she has had some nausea but no vomiting. She has had some general aches and pains and is concerned about her blood pressure since she has a heart history. Timing/Duration: day(s) (2) Severity: moderate Associated Symptoms: nausea, loss of appetite, weakness Allergies/Adverse Reactions: hydromorphone [From Dilaudid] Adverse Reaction (Verified 04/03/22 10:59) oseltamivir phosphate [From Tamiflu] Adverse Reaction (Verified 04/20/19 00:51) Home Medications: Aspirin [Aspirin EC] 162 mg PO DAILY 04/06/19 [History] Atorvastatin Calcium [Lipitor] 10 mg PO DAILY 04/06/19 [History] Famotidine 20 mg PO DAILY 04/06/19 [History] Metoprolol Succinate 50 mg [Toprol Xl 50 MG] 50 mg PO DAILY 04/06/19 [History] Nitroglycerin [Nitroglycerin Patch] 0.2 mg TD HS 04/06/19 [History] clonazePAM [Clonazepam] 0.5 mg PO BID PRN PRN 04/06/19 [History] lisinopriL [Lisinopril] 2.5 mg PO DAILY 04/06/19 [History] Hx Tetanus, Diphtheria Vaccination/Date Given: Yes Hx Influenza Vaccination/Date Given: No Hx Pneumococcal Vaccination/Date Given: No Travel Risk - International Travel Have you traveled outside of the country in past 3 weeks: No - Coronavirus Screening Are you exhibiting any of the following symptoms?: Yes Symptoms: Vomiting/Diarrhea, Headaches/Body Aches/Fatigue Close contact with a COVID-19 positive Pt in past 14-21 Days: No - Vaccine Status Have you recieved a Covid-19 vaccination: Yes 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: [employer] - Vaccination Dates Date of 2cond Vaccination (if applicable): 2020 - Review of Systems Constitutional: No Fever, No Chills Eyes: No Symptoms Ears, Nose, & Throat: No Symptoms Respiratory: No Cough, No Dyspnea Cardiac: No Chest Pain, No Edema, No Syncope Abdominal/Gastrointestinal: No Abdominal Pain, No Nausea, No Vomiting, No Diarrhea Genitourinary Symptoms: No Dysuria Musculoskeletal: No Back Pain, No Neck Pain Skin: No Rash Neurological: No Dizziness, No Focal Weakness, No Sensory Changes Psychological: No Symptoms Endocrine: No Symptoms All Other Systems: Reviewed and Negative - Past Medical History Pertinent Past Medical History: Yes Neurological History: No Pertinent History ENT History: No Pertinent History Cardiac History: Coronary Artery Disease, High Cholesterol, Hypertension, Myocardial Infarction ([place]) Respiratory History: No Pertinent History Endocrine Medical History: No Pertinent History Musculoskeletal History: No Pertinent History GI Medical History: No Pertinent History History: Other Psycho-Social History: Anxiety Female Reproductive Disorders: No Pertinent History Other Medical History: kidney stones - Past Surgical History Past Surgical History: Yes Neuro Surgical History: No Pertinent History Cardiac: Cardiac Catheterization, Cardiac Stent Respiratory: No Pertinent History Gastrointestinal: No Pertinent History, Cholecystectomy Genitourinary: No Pertinent History Musculoskeletal: Orthopedic Surgery Female Surgical History: Hysterectomy Other Surgical History: in 2001 and 2004 heart cath x2, heart stents x3. broken arm with surgery as a child - Social History Smoking Status: Former smoker How long have you smoked: 20 Exposure to second hand smoke: No Drug Use: none Patient Lives Alone: No - Nursing Vital Signs Nursing Vital Signs: Initial Vital Signs Temperature 98.9 F 04/03/22 10:45 Pulse Rate 125 H 04/03/22 10:45 Blood Pressure 153/112 04/03/22 10:45 O2 Sat by Pulse Oximetry 94 L 04/03/22 10:45 Pain Scale Pain Intensity 6 - Physical Exam General Appearance: mild distress, alert Eye Exam: PERRL/EOMI, eyes nml inspection Ears, Nose, Throat Exam: normal ENT inspection, TMs normal, pharynx normal, moist mucous membranes Neck Exam: normal inspection, non-tender, supple, full range of motion Respiratory Exam: normal breath sounds, lungs clear, No respiratory distress Cardiovascular Exam: regular rate/rhythm, normal heart sounds, normal peripheral pulses Gastrointestinal/Abdomen Exam: soft, normal bowel sounds, No tenderness, No mass Back Exam: normal inspection, normal range of motion, No CVA tenderness, No vertebral tenderness Extremity Exam: normal inspection, normal range of motion, pelvis stable Neurologic Exam: alert, oriented x 3, cooperative, normal mood/affect, nml cerebellar function, nml station & gait, sensation nml, No motor deficits Skin Exam: normal color, warm, dry, No rash Lymphatic Exam: No adenopathy SpO2 Interpretation: normal SpO2: 94 O2 Delivery: Room Air - Course Nursing assessment & vital signs reviewed: Yes - CT Exams Abdomen/Pelvis CT Interpretation: Negative Ordered Tests: Active Orders 24 hr Category Date Time Status IV Insertion STAT Care 04/03/22 10:52 Active ABDOMEN AND PELVIS W/0 CONTRAS [CT] Stat Exams 04/03/22 11:50 Completed AMYLASE Stat Lab 04/03/22 11:10 Completed BLOOD CULTURE Stat Lab 04/03/22 11:12 Received CBC W DIFF Stat Lab 04/03/22 11:10 Completed CMP Stat Lab 04/03/22 11:10 Completed FECAL OCCULT BLOOD - SCREENING Stat Lab 04/03/22 10:53 Ordered LIPASE Stat Lab 04/03/22 11:10 Completed Lactic Acid Stat Lab 04/03/22 12:00 Completed PROTIME WITH INR Stat Lab 04/03/22 11:10 Completed UA W/RFX CULTURE Stat Lab 04/03/22 11:19 Completed Medication Summary Discontinued Medications Generic Name Dose Route Start Last Admin Trade Name Freq PRN Reason Stop Dose Admin Hydralazine HCl 10 mg 04/03/22 12:34 04/03/22 12:53 Hydralazine Hcl 20 Mg/Ml Vial IV 04/03/22 12:35 Not Given STAT ONE Hydralazine HCl Confirm 04/03/22 12:50 Hydralazine Hcl 20 Mg/Ml Vial Administered 04/03/22 12:51 Dose 20 mg .ROUTE .STK-MED ONE Sodium Chloride 1,000 mls @ 999 mls/hr 04/03/22 10:52 04/03/22 12:23 Sodium Chloride 0.9% 1000 Ml IV 04/03/22 11:52 Infused .Q1H1M STA Infusion Sodium Chloride Confirm 04/03/22 11:16 Sodium Chloride 0.9% 1000 Ml Administered 04/03/22 11:17 Dose 1,000 mls @ ud .ROUTE .K-MED ONE Lab/Rad Data: Laboratory Result Diagrams 04/03/22 11:10 04/03/22 11:10 Laboratory Results 04/03/22 04/03/22 04/03/22 Range/Units 12:00 11:19 11:10 WBC (4.0-10.5) x10^3/uL RBC (4.1-5.4) x10^6/uL Hgb (12.0-16.0) g/dL Hct (35-47) % MCV (78-100) fL MCH (26-32) pg MCHC (32-36) g/dL RDW (11.5-14.0) % Plt Count (150-450) x10^3/uL MPV (7.5-11.0) fL Gran % (36.0-66.0) % Immature Gran % (Auto) (0.00-0.4) % Nucleat RBC Rel Count (0.00-0.1) % Eos # (Auto) (0-0.5) x10^3/uL Immature Gran # (Auto) (0.00-0.03) x10^3u/L Absolute Lymphs (auto) (1.0-4.6) x10^3/uL Absolute Monos (auto) (0.0-1.3) x10^3/uL Absolute Nucleated RBC (0.00-0.01) x10^3u/L Lymphocytes % (24.0-44.0) % Monocytes % (0.0-12.0) % Eosinophils % (0.00-5.0) % Basophils % (0.0-0.4) % Absolute Granulocytes (1.4-6.9) x10^3/uL Basophils # (0-0.4) x10^3/uL PT (9.4-12.5) SECONDS INR (0.8-3.0) Sodium (137-145) mmol/L Potassium (3.5-5.1) mmol/L Chloride (98-107) mmol/L Carbon Dioxide (22-30) mmol/L Anion Gap (5-15) MEQ/L BUN (7-17) mg/dL Creatinine (0.52-1.04) mg/dL Estimated GFR ML/MIN Glucose (74-106) mg/dL Lactic Acid 1.5 (0.4-2.0) Calcium (8.4-10.2) mg/dL Total Bilirubin (0.2-1.3) mg/dL AST (14-36) U/L ALT (0-35) U/L Alkaline Phosphatase (38-126) U/L Serum Total Protein (6.3-8.2) g/dL Albumin (3.5-5.0) g/dL Amylase (30-110) U/L Lipase (23-300) U/L Urinalys Dipstick Clnc MAIN LAB Urine Color YELLOW (YELLOW) Urine Appearance CLEAR (CLEAR) Urine pH 6.0 (5-6) Ur Specific [place] >=1.030 A (1.005-1.025) POC Urine Protein Conf 100 A (Negative) Urine Ketones NEGATIVE (NEGATIVE) Urine Nitrite NEGATIVE (NEGATIVE) Urine Bilirubin NEGATIVE (NEGATIVE) Urine Urobilinogen 0.2 (0-1) mg/dL Urine Leukocytes SMALL A (NEGATIVE) Urine WBC (Auto) 3-5 A (0-5) /HPF Urine RBC (Auto) 3-5 A (0-2) /HPF U Hyaline Cast (Auto) 0-2 (0-2) /LPF U Epithel Cells (Auto) RARE (FEW) /HPF Urine Bacteria (Auto) NONE (NEGATIVE) /HPF Urine RBC TRACE-INTACT A (0-5) Bala/ul Urine Mucus (Auto) SLIGHT A (NEGATIVE) /HPF Ur Culture Indicated? NO Urine Glucose NEGATIVE (NEGATIVE) mg/dL Influenza Type A Ag POSITIVE (NEGATIVE) Influenza Type B Ag NEGATIVE (NEGATIVE) RSV (PCR) NEGATIVE (Negative) SARS-CoV-2 (PCR) NEGATIVE (NEGATIVE) 04/03/22 04/03/22 04/03/22 Range/Units 11:10 11:10 11:10 WBC 7.9 (4.0-10.5) x10^3/uL RBC 5.52 H (4.1-5.4) x10^6/uL Hgb 15.5 (12.0-16.0) g/dL Hct 48.3 H (35-47) % MCV 87.5 (78-100) fL MCH 28.1 (26-32) pg MCHC 32.1 (32-36) g/dL RDW 12.6 (11.5-14.0) % Plt Count 158 (150-450) x10^3/uL MPV 9.8 (7.5-11.0) fL Gran % 83.5 H (36.0-66.0) % Immature Gran % (Auto) 0.4 (0.00-0.4) % Nucleat RBC Rel Count 0.0 (0.00-0.1) % Eos # (Auto) 0.04 (0-0.5) x10^3/uL Immature Gran # (Auto) 0.03 (0.00-0.03) x10^3u/L Absolute Lymphs (auto) 0.84 L (1.0-4.6) x10^3/uL Absolute Monos (auto) 0.36 (0.0-1.3) x10^3/uL Absolute Nucleated RBC 0.00 (0.00-0.01) x10^3u/L Lymphocytes % 10.7 L (24.0-44.0) % Monocytes % 4.6 (0.0-12.0) % Eosinophils % 0.5 (0.00-5.0) % Basophils % 0.3 (0.0-0.4) % Absolute Granulocytes 6.58 (1.4-6.9) x10^3/uL Basophils # 0.02 (0-0.4) x10^3/uL PT 10.1 (9.4-12.5) SECONDS INR 0.95 (0.8-3.0) Sodium 134 L (137-145) mmol/L Potassium 3.6 (3.5-5.1) mmol/L Chloride 103 (98-107) mmol/L Carbon Dioxide 22 (22-30) mmol/L Anion Gap 12.9 (5-15) MEQ/L BUN 13 (7-17) mg/dL Creatinine 1.13 H (0.52-1.04) mg/dL Estimated GFR 51.4 ML/MIN Glucose 126 H (74-106) mg/dL Lactic Acid (0.4-2.0) Calcium 8.9 (8.4-10.2) mg/dL Total Bilirubin 0.70 (0.2-1.3) mg/dL AST 40 H (14-36) U/L ALT 24 (0-35) U/L Alkaline Phosphatase 126 (38-126) U/L Serum Total Protein 7.6 (6.3-8.2) g/dL Albumin 4.4 (3.5-5.0) g/dL Amylase 111 H (30-110) U/L Lipase 131 (23-300) U/L Urinalys Dipstick Clnc Urine Color (YELLOW) Urine Appearance (CLEAR) Urine pH (5-6) Ur Specific [place] (1.005-1.025) POC Urine Protein Conf (Negative) Urine Ketones (NEGATIVE) Urine Nitrite (NEGATIVE) Urine Bilirubin (NEGATIVE) Urine Urobilinogen (0-1) mg/dL Urine Leukocytes (NEGATIVE) Urine WBC (Auto) (0-5) /HPF Urine RBC (Auto) (0-2) /HPF U Hyaline Cast (Auto) (0-2) /LPF U Epithel Cells (Auto) (FEW) /HPF Urine Bacteria (Auto) (NEGATIVE) /HPF Urine RBC (0-5) Bala/ul Urine Mucus (Auto) (NEGATIVE) /HPF Ur Culture Indicated? Urine Glucose (NEGATIVE) mg/dL Influenza Type A Ag (NEGATIVE) Influenza Type B Ag (NEGATIVE) RSV (PCR) (Negative) SARS-CoV-2 (PCR) (NEGATIVE) - Progress Progress: unchanged - Departure Departure Disposition: Home Clinical Impression: Influenza A Condition: Stable Critical Care Time: No Referrals: CONCHITA STAFFORD MD [Primary Care Provider] - Follow up/PCP as directed Instructions: Flu, Adult (DC)
[2022-04-03 13:18] VITALS: BP 153/92; PULSE 85
== END 2022-04-03 13:23 | disposition home or self-care (01) ==
LOC: ED 10:22
DX: J10.2 Influenza due to other identified influenza virus with gastrointestinal manifestations (principal); R19.7 Diarrhea, unspecified; R11.0 Nausea; M79.10 Myalgia, unspecified site; E78.5 Hyperlipidemia, unspecified; I10 Essential (primary) hypertension; Z79.899 Other long term (current) drug therapy; Z20.828 Contact with and (suspected) exposure to other viral communicable diseases
CPT/HCPCS: 0241U; 36415; 74176; 80053; 81015; 82150; 83605; 83690; 85025; 85610; 87040; 96360; 99284; J0360

== ENCOUNTER 2022-12-28 11:54 | Emergency (ER) | payer MEDICARE ==
[2022-12-28] MEDS ORDERED: XYLOCAINE HCl Viscous MM ONE (11:55)
--- NOTE | 2022-12-28 11:58 | ERPHSYRPT ---
- History of Present Illness Time Seen by Provider: 12/28/22 11:58 Historian: patient Exam Limitations: no limitations Physician History: This is a 67-year-old white female patient who has a cardiac history and sees Dr. Devlin as her process eng and her primary care physician is Dr. Stafford and woke up this morning first to having diarrhea episodes followed by vomiting episodes and then chest pain that she describes more as a burning in her chest that is central and substernal and radiated to her left anterior chest. She felt as though she has "reflux in my chest" patient has had a cardiac catheterization and 3 cardiac stents placed in the past. The sensation in her chest today is different than her other heart attacks. Patient has a history of hyperlipidemia, gastroesophageal reflux disease, hypertension, coronary artery disease and anxiety issues. Patient had a twelve-lead EKG performed on 04/06/2019 which showed a heart rate of 78 in normal sinus rhythm normal axis and nonspecific ST changes. Patient denies significant abdominal pain Timing/Duration: today Activities at Onset: none Quality: burning Location: substernal, central, other (Radiated to her left anterior chest) Severity of Pain-Max: mild Severity of Pain-Current: mild Modifying Factors: Improves With: nothing Associated Symptoms: nausea, vomiting, heartburn, other (Diarrhea) Prior Chest Pain/Cardiac Workup: cardiac cath, heart attack Nitro Today/Relief: no nitro taken today Aspirin Treatment Today: no aspirin today Allergies/Adverse Reactions: hydromorphone [From Dilaudid] Adverse Reaction (Verified 12/28/22 12:15) oseltamivir phosphate [From Tamiflu] Adverse Reaction (Verified 12/28/22 12:15) Home Medications: Aspirin [Aspirin EC] 162 mg PO DAILY 04/06/19 [History] Atorvastatin Calcium [Lipitor] 20 mg PO DAILY 04/06/19 [History] Famotidine 20 mg PO DAILY 04/06/19 [History] Metoprolol Succinate 50 mg [Toprol Xl 50 MG] 50 mg PO DAILY 04/06/19 [History] Nitroglycerin [Nitroglycerin Patch] 0.2 mg TD HS 04/06/19 [History] clonazePAM [Clonazepam] 0.5 mg PO DAILY 04/06/19 [History] Hx Tetanus, Diphtheria Vaccination/Date Given: Yes Hx Influenza Vaccination/Date Given: No Hx Pneumococcal Vaccination/Date Given: No Travel Risk - International Travel Have you traveled outside of the country in past 3 weeks: No - Coronavirus Screening Are you exhibiting any of the following symptoms?: Yes Symptoms: Vomiting/Diarrhea Close contact with a COVID-19 positive Pt in past 14-21 Days: No - Vaccine Status Have you recieved a Covid-19 vaccination: Yes Plant Sprayer: Pfizer - Vaccination Dates Date of 2cond Vaccination (if applicable): 2020 - Review of Systems Constitutional: No Symptoms Eyes: No Symptoms Ears, Nose, & Throat: No Symptoms Respiratory: No Symptoms Cardiac: Chest Pain Abdominal/Gastrointestinal: Nausea (She describes as a burning sensation), Vomiting, Diarrhea, Appetite Changes Genitourinary Symptoms: No Symptoms Musculoskeletal: No Symptoms Skin: No Symptoms Neurological: No Symptoms Psychological: No Symptoms Endocrine: No Symptoms Hematologic/Lymphatic: No Symptoms Immunological/Allergic: No Symptoms All Other Systems: Reviewed and Negative - Past Medical History Pertinent Past Medical History: Yes Neurological History: No Pertinent History ENT History: No Pertinent History Cardiac History: Coronary Artery Disease, High Cholesterol, Hypertension, Myocardial Infarction ([place]) Respiratory History: No Pertinent History Endocrine Medical History: No Pertinent History Musculoskeletal History: No Pertinent History GI Medical History: No Pertinent History History: Other Psycho-Social History: Anxiety Female Reproductive Disorders: No Pertinent History Other Medical History: kidney stones - Past Surgical History Past Surgical History: Yes Neuro Surgical History: No Pertinent History Cardiac: Cardiac Catheterization, Cardiac Stent Respiratory: No Pertinent History Gastrointestinal: No Pertinent History, Cholecystectomy Genitourinary: No Pertinent History Musculoskeletal: Orthopedic Surgery Female Surgical History: Hysterectomy Other Surgical History: in 2001 and 2004 heart cath x2, heart stents x3. broken arm with surgery as a child - Social History Smoking Status: Former smoker How long have you smoked: 20 Exposure to second hand smoke: No Drug Use: none Patient Lives Alone: No - Nursing Vital Signs Nursing Vital Signs: Initial Vital Signs Temperature 99.4 F 12/28/22 12:00 Pulse Rate 113 H 12/28/22 12:00 Respiratory Rate 15 12/28/22 12:00 Blood Pressure 184/119 12/28/22 12:00 O2 Sat by Pulse Oximetry 96 12/28/22 12:00 Pain Scale Pain Intensity 0 - Physical Exam General Appearance: mild distress, alert, anxiety, obese Eye Exam: PERRL/EOMI, eyes nml inspection Ears, Nose, Throat Exam: normal ENT inspection, moist mucous membranes Neck Exam: normal inspection, non-tender, supple, full range of motion Respiratory Exam: normal breath sounds, chest tenderness, lungs clear, airway intact, No respiratory distress Cardiovascular Exam: normal peripheral pulses, tachycardia Gastrointestinal/Abdomen Exam: soft, normal bowel sounds, No tenderness Pelvic Exam: not done Rectal Exam: not done Back Exam: normal inspection, normal range of motion, No CVA tenderness, No vertebral tenderness Extremity Exam: normal inspection, normal range of motion, pelvis stable, No pedal edema Neurologic Exam: alert, oriented x 3, cooperative, truss puller helper II-XII nml as tested, nml cerebellar function, nml station & gait, sensation nml Skin Exam: normal color, warm, dry Lymphatic Exam: No adenopathy SpO2 Interpretation: normal O2 Delivery: Room Air - Course Nursing assessment & vital signs reviewed: Yes EKG Interpreted by Me: RATE (96), Sinus Rhythm, NORMAL AXIS, NORMAL INTERVALS, NORMAL QRS, Non-specific ST Changes, Other (No acute ischemic changes on today's twelve-lead EKG.) Ordered Tests: Active Orders 24 hr Category Date Time Status EKG-ER Only STAT Care 12/28/22 12:19 Active IV Insertion STAT Care 12/28/22 12:19 Active Pulse Oximetry (ED) STAT Care 12/28/22 12:50 Active CHEST 1 VIEW (PORTABLE) Stat Exams 12/28/22 13:50 Taken AMYLASE Stat Lab 12/28/22 12:05 Completed CBC W DIFF Stat Lab 12/28/22 12:29 Completed CMP Stat Lab 12/28/22 12:05 Completed CULTURE,URINE Stat Lab 12/28/22 14:02 Received LIPASE Stat Lab 12/28/22 12:05 Completed MONO SCREEN Stat Lab 12/28/22 12:05 Completed TROPONIN Q4H Lab 12/28/22 12:05 Completed TROPONIN Q4H Lab 12/28/22 15:45 Completed TROPONIN Q4H Lab 12/28/22 20:30 Ordered UA W/RFX UR CULTURE Stat Lab 12/28/22 14:02 Completed Medication Summary Discontinued Medications Generic Name Dose Route Start Last Admin Trade Name Freq PRN Reason Stop Dose Admin Al Hydrox/Mg Hydrox/Simethicone Confirm 12/28/22 13:00 Mag Hydrox/Al Hydrox/Simeth 30 Ml Udcup Administered 12/28/22 13:01 Dose 30 ml .ROUTE .STK-MED ONE Aspirin 324 mg 12/28/22 12:50 12/28/22 13:05 Aspirin 81 Mg Tab.Chew PO 12/28/22 12:51 324 mg STAT ONE Administration Aspirin Confirm 12/28/22 13:01 Aspirin 81 Mg Tab.Chew Administered 12/28/22 13:02 Dose 324 mg .ROUTE .STK-MED ONE Sodium Chloride 1,000 mls @ 999 mls/hr 12/28/22 12:19 12/28/22 13:51 Sodium Chloride 0.9% 1000 Ml IV 12/28/22 13:19 Infused .Q1H1M STA Infusion Sodium Chloride Confirm 12/28/22 12:47 Sodium Chloride 0.9% 1000 Ml Administered 12/28/22 12:48 Dose 1,000 mls @ ud .ROUTE .STK-MED ONE Ceftriaxone Sodium/Dextrose 1 g in 50 mls @ 100 mls/hr 12/28/22 15:33 12/28/22 16:25 Rocephin 1 Gm-D5w 50 Ml Bag IV 12/28/22 16:02 Infused STAT STA Infusion Ceftriaxone Sodium/Dextrose Confirm 12/28/22 15:42 Rocephin 1 Gm-D5w 50 Ml Bag Administered 12/28/22 15:43 Dose 1 g in 50 mls @ ud IV .STK-MED ONE Lidocaine HCl Confirm 12/28/22 13:04 Lidocaine Hcl Viscous 1 Ml Administered 12/28/22 13:05 Dose 1 ml .ROUTE .STK-MED ONE Magnesium Hydroxide 45 ml 12/28/22 12:51 12/28/22 13:05 Mag Hydrx/Alum Hyd/Simeth/Lido 45 Ml Bottle PO 12/28/22 12:52 45 ml STAT ONE Administration Ondansetron HCl 4 mg 12/28/22 12:19 12/28/22 12:48 Ondansetron Hcl 4 Mg/2 Ml Vial IV 12/28/22 12:20 4 mg STAT ONE Administration Ondansetron HCl Confirm 12/28/22 12:47 Ondansetron Hcl 4 Mg/2 Ml Vial Administered 12/28/22 12:48 Dose 4 mg .ROUTE .STK-MED ONE Pantoprazole Sodium 40 mg 12/28/22 12:19 12/28/22 12:48 Pantoprazole 40 Mg Vial IV 12/28/22 12:20 40 mg STAT ONE Administration Pantoprazole Sodium Confirm 12/28/22 12:47 Pantoprazole 40 Mg Vial Administered 12/28/22 12:48 Dose 40 mg IV .K-MED ONE Lab/Rad Data: Laboratory Result Diagrams 12/28/22 12:29 12/28/22 12:05 Laboratory Results 12/28/22 12/28/22 12/28/22 Range/Units 15:45 14:02 12:29 WBC (4.0-10.5) x10^3/uL RBC (4.1-5.4) x10^6/uL Hgb (12.0-16.0) g/dL Hct (35-47) % MCV (78-100) fL MCH (26-32) pg MCHC (32-36) g/dL RDW (11.5-14.0) % Plt Count (150-450) x10^3/uL MPV (7.5-11.0) fL Gran % (36.0-66.0) % Immature Gran % (Auto) (0.00-0.4) % Nucleat RBC Rel Count (0.00-0.1) % Eos # (Auto) (0-0.5) x10^3/uL Immature Gran # (Auto) (0.00-0.03) x10^3u/L Absolute Lymphs (auto) (1.0-4.6) x10^3/uL Absolute Monos (auto) (0.0-1.3) x10^3/uL Absolute Nucleated RBC (0.00-0.01) x10^3u/L Lymphocytes % (24.0-44.0) % Monocytes % (0.0-12.0) % Eosinophils % (0.00-5.0) % Basophils % (0.0-0.4) % Absolute Granulocytes (1.4-6.9) x10^3/uL Basophils # (0-0.4) x10^3/uL Sodium (137-145) mmol/L Potassium (3.5-5.1) mmol/L Chloride (98-107) mmol/L Carbon Dioxide (22-30) mmol/L Anion Gap (5-15) MEQ/L BUN (7-17) mg/dL Creatinine (0.52-1.04) mg/dL Estimated GFR ML/MIN Glucose (74-106) mg/dL Calcium (8.4-10.2) mg/dL Total Bilirubin (0.2-1.3) mg/dL AST (14-36) U/L ALT (0-35) U/L Alkaline Phosphatase (38-126) U/L Troponin I < 0.012 (0.000-0.034) ng/mL Serum Total Protein (6.3-8.2) g/dL Albumin (3.5-5.0) g/dL Amylase (30-110) U/L Lipase (23-300) U/L Urine Color Yellow (Yellow) Urine Appearance Cloudy A (Clear) Urine pH 5.5 (4.6-8.0) Ur Specific [place] 1.015 (1.005-1.030) Urine Protein Trace A (Negative) Urine Glucose (UA) Negative (Negative) mg/dL Urine Ketones Negative (Negative) Urine Blood Trace (Negative) Urine Nitrite Positive A (Negative) Urine Bilirubin Negative (Negative) Urine Urobilinogen 0.2 (0.2) mg/dL Ur Leukocyte Esterase Large A (Negative) U Hyaline Cast (Auto) 3-5 A (0-2) /LPF Urine Microscopic RBC 0-2 (0-5) /HPF Urine Microscopic WBC >100 A (0-5) /HPF Ur Epithelial Cells Many A (None Seen) /HPF Urine Bacteria Many A (None Seen) /HPF Urine Culture Reflexed YES (NO) Monoscreen (NEGATIVE) Influenza Type A Ag NEGATIVE (NEGATIVE) Influenza Type B Ag NEGATIVE (NEGATIVE) RSV (PCR) NEGATIVE (NEGATIVE) SARS-CoV-2 (PCR) NEGATIVE (NEGATIVE) 12/28/22 12/28/22 12/28/22 Range/Units 12:29 12:05 12:05 WBC 11.5 H (4.0-10.5) x10^3/uL RBC 5.49 H (4.1-5.4) x10^6/uL Hgb 15.7 (12.0-16.0) g/dL Hct 48.0 H (35-47) % MCV 87.4 (78-100) fL MCH 28.6 (26-32) pg MCHC 32.7 (32-36) g/dL RDW 13.1 (11.5-14.0) % Plt Count 198 (150-450) x10^3/uL MPV 10.0 (7.5-11.0) fL Gran % 86.4 H (36.0-66.0) % Immature Gran % (Auto) 0.3 (0.00-0.4) % Nucleat RBC Rel Count 0.0 (0.00-0.1) % Eos # (Auto) 0.09 (0-0.5) x10^3/uL Immature Gran # (Auto) 0.03 (0.00-0.03) x10^3u/L Absolute Lymphs (auto) 0.88 L (1.0-4.6) x10^3/uL Absolute Monos (auto) 0.53 (0.0-1.3) x10^3/uL Absolute Nucleated RBC 0.00 (0.00-0.01) x10^3u/L Lymphocytes % 7.6 L (24.0-44.0) % Monocytes % 4.6 (0.0-12.0) % Eosinophils % 0.8 (0.00-5.0) % Basophils % 0.3 (0.0-0.4) % Absolute Granulocytes 9.97 H (1.4-6.9) x10^3/uL Basophils # 0.03 (0-0.4) x10^3/uL Sodium (137-145) mmol/L Potassium (3.5-5.1) mmol/L Chloride (98-107) mmol/L Carbon Dioxide (22-30) mmol/L Anion Gap (5-15) MEQ/L BUN (7-17) mg/dL Creatinine (0.52-1.04) mg/dL Estimated GFR ML/MIN Glucose (74-106) mg/dL Calcium (8.4-10.2) mg/dL Total Bilirubin (0.2-1.3) mg/dL AST (14-36) U/L ALT (0-35) U/L Alkaline Phosphatase (38-126) U/L Troponin I < 0.012 (0.000-0.034) ng/mL Serum Total Protein (6.3-8.2) g/dL Albumin (3.5-5.0) g/dL Amylase (30-110) U/L Lipase (23-300) U/L Urine Color (Yellow) Urine Appearance (Clear) Urine pH (4.6-8.0) Ur Specific [place] (1.005-1.030) Urine Protein (Negative) Urine Glucose (UA) (Negative) mg/dL Urine Ketones (Negative) Urine Blood (Negative) Urine Nitrite (Negative) Urine Bilirubin (Negative) Urine Urobilinogen (0.2) mg/dL Ur Leukocyte Esterase (Negative) U Hyaline Cast (Auto) (0-2) /LPF Urine Microscopic RBC (0-5) /HPF Urine Microscopic WBC (0-5) /HPF Ur Epithelial Cells (None Seen) /HPF Urine Bacteria (None Seen) /HPF Urine Culture Reflexed (NO) Monoscreen WEAKLY POSITIVE A (NEGATIVE) Influenza Type A Ag (NEGATIVE) Influenza Type B Ag (NEGATIVE) RSV (PCR) (NEGATIVE) SARS-CoV-2 (PCR) (NEGATIVE) 12/28/22 Range/Units 12:05 WBC (4.0-10.5) x10^3/uL RBC (4.1-5.4) x10^6/uL Hgb (12.0-16.0) g/dL Hct (35-47) % MCV (78-100) fL MCH (26-32) pg MCHC (32-36) g/dL RDW (11.5-14.0) % Plt Count (150-450) x10^3/uL MPV (7.5-11.0) fL Gran % (36.0-66.0) % Immature Gran % (Auto) (0.00-0.4) % Nucleat RBC Rel Count (0.00-0.1) % Eos # (Auto) (0-0.5) x10^3/uL Immature Gran # (Auto) (0.00-0.03) x10^3u/L Absolute Lymphs (auto) (1.0-4.6) x10^3/uL Absolute Monos (auto) (0.0-1.3) x10^3/uL Absolute Nucleated RBC (0.00-0.01) x10^3u/L Lymphocytes % (24.0-44.0) % Monocytes % (0.0-12.0) % Eosinophils % (0.00-5.0) % Basophils % (0.0-0.4) % Absolute Granulocytes (1.4-6.9) x10^3/uL Basophils # (0-0.4) x10^3/uL Sodium 140 (137-145) mmol/L Potassium 3.8 (3.5-5.1) mmol/L Chloride 108 H (98-107) mmol/L Carbon Dioxide 19 L (22-30) mmol/L Anion Gap 15.8 H (5-15) MEQ/L BUN 15 (7-17) mg/dL Creatinine 1.12 H (0.52-1.04) mg/dL Estimated GFR 51.7 ML/MIN Glucose 131 H (74-106) mg/dL Calcium 9.3 (8.4-10.2) mg/dL Total Bilirubin 0.60 (0.2-1.3) mg/dL AST 31 (14-36) U/L ALT 28 (0-35) U/L Alkaline Phosphatase 100 (38-126) U/L Troponin I (0.000-0.034) ng/mL Serum Total Protein 6.5 (6.3-8.2) g/dL Albumin 4.1 (3.5-5.0) g/dL Amylase 93 (30-110) U/L Lipase 76 (23-300) U/L Urine Color (Yellow) Urine Appearance (Clear) Urine pH (4.6-8.0) Ur Specific [place] (1.005-1.030) Urine Protein (Negative) Urine Glucose (UA) (Negative) mg/dL Urine Ketones (Negative) Urine Blood (Negative) Urine Nitrite (Negative) Urine Bilirubin (Negative) Urine Urobilinogen (0.2) mg/dL Ur Leukocyte Esterase (Negative) U Hyaline Cast (Auto) (0-2) /LPF Urine Microscopic RBC (0-5) /HPF Urine Microscopic WBC (0-5) /HPF Ur Epithelial Cells (None Seen) /HPF Urine Bacteria (None Seen) /HPF Urine Culture Reflexed (NO) Monoscreen (NEGATIVE) Influenza Type A Ag (NEGATIVE) Influenza Type B Ag (NEGATIVE) RSV (PCR) (NEGATIVE) SARS-CoV-2 (PCR) (NEGATIVE) - Progress Progress: improved, re-examined Air Movement: good Progress Note: 12/28/22 16:53 Chest x-ray was interpreted by me. Patient appears to have chronic scarring and not necessarily infiltrate on either side. She may have some bibasilar atelectasis. This patient's medical issue is 1 of moderate complexity. Level complexity and work-up performed based on review of the patient's past medical history, review of the patient's medication list, review the patient's drug allergy list, history of present illness and physical findings on examination. This patient has a work-up that includes chest x-ray, twelve-lead EKG, troponin level, flu swabs, mono swabs, troponin level, urinalysis, CBC and CMP. I reviewed the laboratory data. The patient has a significant urinalysis that may account for her symptoms. She is not having chest pain at this time. She has had 2 normal troponins and the repeat, 3-hour, twelve-lead EKG was performed on 12/28/2022 at 1618. It shows a normal sinus rhythm with a heart rate of 75 bpm. There is normal axis, normal intervals, normal QRS without evidence of any acute ischemic changes. Patient will be discharged home with a prescription for Levaquin antibiotic. Blood Culture(s) Obtained: No Antibiotics given: Yes Counseled pt/family regarding: lab results, diagnosis, need for follow-up, rad results Medical Desision Making - Diagnostic Testing Diagnostic test were ordered, analyzed, and reviewed by me: Yes Radiological Interpretation: Interpreted by me - Risk of complications The pt has a mod risk of morbidity or mortality based on: Need for prescription drug management - Departure Departure Disposition: Home Clinical Impression: Vomiting, Mononucleosis, UTI (urinary tract infection) Condition: Stable Critical Care Time: No Referrals: CONCHITA STAFFORD MD [Primary Care Provider] - Follow up/PCP as directed Additional Instructions: Drink plenty of fluids. Take your antibiotics as prescribed. Take your other medication as prescribed follow-up with your primary care provider for further evaluation and management. Call your primary care provider on 12/31/2019 3 in the morning to make arranges for follow-up in the next 3 days. Prescriptions: Levofloxacin [Levaquin 500 MG Tablet] 500 mg PO DAILY #7 tablet
[2022-12-28 12:16] VITALS: TEMP 99.4
[2022-12-28] MEDS ORDERED: Zofran 4 MG/2 ML VIAL IV ONE (12:19)
[2022-12-28] MEDS ORDERED: PROTONIX 40 MG IV IV ONE ×2 (12:19→12:47)
[2022-12-28] MEDS ORDERED: Sodium Chloride 0.9% 1000 ML 1,000 ML IV STA (12:19)
[2022-12-28 12:36] LABS: Absolute Neutrophil Ct (ANC) 9.97 x10^3/uL (1.4-6.9); BASOPHIL % 0.3 % (0.0-0.4); Basophil (Absolute #) 0.03 x10^3/uL (0-0.4); Eosinophil % 0.8 % (0.00-5.0); Eosinophil (Absolute #) 0.09 x10^3/uL (0-0.5); Hemoglobin 15.7 g/dL (12.0-16.0); IMMATURE GRAN # 0.03 x10^3u/L (0.00-0.03); IMMATURE GRAN % 0.3 % (0.00-0.4); Lymphocyte (Absolute #) 0.88 x10^3/uL (1.0-4.6); Lymphocytes % 7.6 % (24.0-44.0); Mean Cell Volume 87.4 fL (78-100); Mean Corpuscular Hemoglobin 28.6 pg (26-32); Mean Corpuscular Hgb Concent. 32.7 g/dL (32-36); Monocyte (Absolute #) 0.53 x10^3/uL (0.0-1.3); Monocytes % 4.6 % (0.0-12.0); Neutrophil % 86.4 % (36.0-66.0); Platelet Count 198 x10^3/uL (150-450); Red Blood Count 5.49 x10^6/uL (4.1-5.4); Red Cell Distribution Width 13.1 % (11.5-14.0); White Blood Count 11.5 x10^3/uL (4.0-10.5)
[2022-12-28] MEDS ORDERED: Zofran 4 MG/2 ML VIAL ONE (12:47)
[2022-12-28] MEDS ORDERED: Sodium Chloride 0.9% 1000 ML 1,000 ML ONE (12:47)
[2022-12-28] MEDS ORDERED: BABY ASPIRIN 81 MG CHEW PO ONE (12:50)
[2022-12-28] MEDS ORDERED: GI COCKTAIL 45 ML (Maalox/Lidocaine) PO ONE (12:51)
[2022-12-28] MEDS ORDERED: MAALOX ES 30 ML UNIT DOSE ONE (13:00)
[2022-12-28] MEDS ORDERED: BABY ASPIRIN 81 MG CHEW ONE (13:01)
[2022-12-28] MEDS ORDERED: XYLOCAINE HCl Viscous ONE (13:04)
[2022-12-28 13:16] LABS: INFLUENZA A NEGATIVE (NEGATIVE); INFLUENZA B NEGATIVE (NEGATIVE); RESPIRATORY SYNCTIAL VIRUS NEGATIVE (NEGATIVE); SARS-CoV-2 Xpert Express NEGATIVE (NEGATIVE)
[2022-12-28 13:17] LABS: ALBUMIN 4.1 g/dL (3.5-5.0); ANION GAP 15.8 MEQ/L (5-15); BILIRUBIN,TOTAL 0.6 mg/dL (0.2-1.3); Calcium 9.3 mg/dL (8.4-10.2); Creatinine 1 1.12 mg/dL (0.52-1.04); EST GLOMERULAR FILTRATION RATE 51.7 ML/MIN; Potassium 3.8 mmol/L (3.5-5.1); Total Protein 6.5 g/dL (6.3-8.2)
[2022-12-28 14:17] LABS: Appearance Cloudy (Clear); Bacteria Many /HPF (None Seen); Bilirubin Negative (Negative); Blood Trace (Negative); Epithelial Cells Many /HPF (None Seen); Glucose, Urine Negative (Negative); Ketones Negative (Negative); Leukocyte Esterase Large (Negative); Nitrite Positive (Negative); Ph 5.5 (4.6-8.0); Protein,Urine Dip Trace (Negative); RBC 0-2 /HPF (0-5); Specific Gravity 1.015 (1.005-1.030); Urobilinogen 0.2 mg/dL (0.2); WBC >100 /HPF (0-5)
[2022-12-28 14:19] LABS: ADD URINE CULTURE? YES (NO)
[2022-12-28] MEDS ORDERED: ROCEPHIN 1 Gm-D5w 50 ml Bag** 1 G/50 ML IVPB IV STA (15:33)
[2022-12-28] MEDS ORDERED: ROCEPHIN 1 Gm-D5w 50 ml Bag** 1 G/50 ML IVPB IV ONE (15:42)
[2022-12-28 16:05] VITALS: PULSE 77
[2022-12-28 17:01] VITALS: BP 151/119; RESP 20; O2SAT 96
--- NOTE | 2022-12-28 21:02 | XRAY ---
Indication: Left chest pain. Comparison: April 06, 2019 Portable apical lordotic chest again demonstrates scattered fibrosis/scarring without focal infiltrate, consolidation, or large effusion. Heart not enlarged. Bony thorax intact again with osteopenia and mild levoscoliosis. Impression: Continued nonacute chest with chronic features.
== END 2022-12-28 17:12 | disposition home or self-care (01) ==
LOC: ED 11:54
DX: B27.90 Infectious mononucleosis, unspecified without complication (principal); N39.0 Urinary tract infection, site not specified; R11.2 Nausea with vomiting, unspecified; R07.9 Chest pain, unspecified; R19.7 Diarrhea, unspecified; E78.5 Hyperlipidemia, unspecified; I10 Essential (primary) hypertension; Z79.899 Other long term (current) drug therapy; Z20.828 Contact with and (suspected) exposure to other viral communicable diseases
CPT/HCPCS: 0241U; 36415; 71045; 80053; 81001; 82150; 83690; 84484; 85025; 86308; 87077; 87086; 87186; 93005; 94760; 96365; 96374; 96375; 99284; J0696; J2405; A9270-GY